=== PATIENT | female | born 1985 | race Caucasian/White ===

== ENCOUNTER → 2019-05-29 11:52 | Outpatient (CLI) | payer OTHER, SELFPAY ==
--- NOTE | 2019-05-29 11:59 | RAD_ITS ---
STUDY: HYSTEROSALPINGOGRAM. REASON FOR EXAM: Female, 33 years old. Infertility, 20.05 mg FLUOROSCOPY TIME (if supplied): ( 40 seconds ) minutes/seconds TECHNIQUE: A hysterosalpingogram was performed by the dyer assistant. Imaging was submitted. COMPARISON: None. FINDINGS: The uterus is unremarkable. Both fallopian tubes are patent with free spill. RAD/Salpingogram IMPRESSION: Unremarkable hysterosalpingogram. Electronically Signed: Franklyn Rojo, at 13:24 EST , Service support ,
== END ==
PROVIDERS: PCP Family Medicine; Referring Provider Obstetrics & Gynecology; Visit Provider Obstetrics & Gynecology
DX: N97.9 Female infertility, unspecified (principal)
CPT/HCPCS: 58340; 74740; Q9967

== ENCOUNTER → 2020-03-05 12:28 | Outpatient (CLI) | payer OTHER, SELFPAY ==
[2020-03-05 13:39] LABS: Prolactin 13.2 ng/mL; T4 Free Direct 1.13 ng/dL (0.76-1.46); Thyroid Stim Hormone (TSH) 1.01 uIU/mL (0.358-3.74)
[2020-03-05 14:06] LABS: HIV - WCH Non-Reactive (Nonreactive); Hepatitis B Surface Antigen Non-Reactive (Nonreactive); Hepatitis C Antibody Non-Reactive (Nonreactive); Rubella IgG Reactive (Nonreactive)
[2020-03-06 20:42] LABS: V-Zoster IgG (Immunity) > 4000 index (Immune >165)
[2020-03-07 01:21] LABS: Rapid Plasmin Reagin (RPR) NONREACTIVE (NONREACTIVE)
[2020-03-11 04:44] LABS: 17-Hydroxyprogesterone 132 ng/dL (.)
== END ==
PROVIDERS: PCP Family Medicine
DX: Z01.83 Encounter for blood typing (principal); E03.9 Hypothyroidism, unspecified; E22.1 Hyperprolactinemia; E28.1 Androgen excess; Z11.3 Encounter for screening for infections with a predominantly sexual mode of transmission; Z11.59 Encounter for screening for other viral diseases; Z11.8 Encounter for screening for other infectious and parasitic diseases
CPT/HCPCS: 36415; 82627; 83498; 84146; 84403; 84439; 84443; 86592; 86703; 86762; 86787; 86803; 86850; 86900; 86901; 87340; 82626

== ENCOUNTER 2021-01-29 17:20 | Outpatient (CLI) | payer OTHER, SELFPAY ==
[2021-01-29 17:34] VITALS: BP 120/67; PULSE 84
[2021-01-29 17:35] VITALS: BP 120/67; PULSE 84; TEMP 36.7; TEMP 36.8
[2021-01-29 17:36] VITALS: BMI 33.5
--- NOTE | 2021-01-29 21:20 | OB.TRI.NOTE ---
HPI - General HPI Narrative ERASMO SPARKS, is a 35 F @ 37 weeks who presents c/o decreased FM PFSH PFSH Home Medications magnesium [Mag-200] 200 mg PO DAILY 01/29/21 [History Last Taken Unknown] [id number] [] 1 tab PO DAILY 01/29/21 [History Last Taken 01/29/21 08:00 1] Allergy/AdvReac Type Severity Reaction Status Date / Time hydrocodone [From Vicodin] AdvReac Nausea Verified 01/29/21 17:48 NST FHR Rate Baby A Baseline: 145 Variability:: Moderate Accelerations:: 15 x 15 Decelerations:: None NST Reactive:: Yes FHR Category:: Category I Uterine Activity:: q2-4 min Assessment & Plan (1) Decreased movement: PLAN: @ 37 weeks, decreased FM 1) nst reactive- well being established 2) follow up in office as scheduled
== END 2021-01-29 18:30 | disposition home or self-care (01) ==
LOC: WPOUT 17:32 → WP 17:33
PROVIDERS: PCP Family Medicine; Referring Provider Obstetrics & Gynecology; Visit Provider Obstetrics & Gynecology
DX: O36.8130 Decreased fetal movements, third trimester, not applicable or unspecified (principal); Z3A.37 37 weeks gestation of pregnancy
CPT/HCPCS: 59025; 59050; 99218; G0378

== ENCOUNTER 2021-02-15 13:35 | Outpatient (CLI) | payer OTHER, SELFPAY ==
[2021-02-15 14:23] VITALS: BMI 33.6
[2021-02-15 14:29] VITALS: BP 115/74; PULSE 86; PULSE 89
[2021-02-15 14:40] LABS: ROM Internal Control Test YES-OK TO RESULT pt. (Internal QC)
[2021-02-15 14:41] LABS: ROM Patient Test Negative (Negative)
--- NOTE | 2021-02-15 14:51 | OB.TRI.NOTE ---
HPI - General HPI Narrative ERASMO SPARKS, is a 35 F at 39.3 weeks gestation who presents to with loss of fluid. Patient stated she had small amount of blood tinged mucus this morning after wiping. She continues to feel like she is leaking clear fluid. Positive movement. Denies any cramps or contractions. Maternal Data Information CASSIDY Calculator Estimated Delivery Date Method Current WG Current Estimate 02/19/21 Manual 39w 3d PFSH PFSH Home Medications magnesium [Mag-200] 200 mg PO DAILY 01/29/21 [History Last Taken Unknown] [id number] [] 1 tab PO DAILY 01/29/21 [History Last Taken 01/29/21 08:00 1] Allergy/AdvReac Type Severity Reaction Status Date / Time hydrocodone [From Vicodin] AdvReac Nausea Verified 01/29/21 17:48 ROS Eyes Eyes: Denies blurry vision Cardiovascular Cardiovascular: Reports none; Denies chest pain at rest, chest pain with activity or dizziness Respiratory/Chest Respiratory/Chest: Denies cough or dyspnea Gastrointestinal Gastrointestinal: Reports none and other; Denies diarrhea or vomiting Genitourinary Genitourinary: Denies dysuria Musculoskeletal Musculoskeletal: Reports none Integumentary Integumentary: Reports none; Denies rash Neurologic Neurologic: Denies dizziness, headache(s) or other visual disturbances Psychiatric Psychiatric: Reports none Physical Exam Const alert and no apparent distress General Appearance: cooperative Orientation / Consciousness: awake Exam Limitations: no limitations HEENT normocephalic Eyes General Eye: normal appearance of both eyes Neck full ROM Chest inspection of chest normal Resp normal respiratory effort and normal air movement Effort and Inspection: symmetric chest movement Auscultation: clear to auscultation bilaterally Cardio regular rate GI soft to palpation, non-tender and non-distended Inspection: and other Manual OB Exam: dilated 1, effaced 50 and station -3 Back/Spine normal ROM Extremity full ROM, normal capillary refill and no calf tenderness Skin no rashes or lesions noted Neuro oriented x3 and CN's II-XII intact bilaterally Psych mental status grossly normal NST FHR Rate Baby A Baseline: 135 Variability:: Moderate Accelerations:: 15 x 15 Decelerations:: None NST Reactive:: Yes FHR Category:: Category I Uterine Activity:: irritability Assessment & Plan (1) 39 weeks gestation of : (2) Leakage of amniotic fluid: PLAN: NST reactive- Cat.1 tracing ROM plus - negative CE /-3 Labor precautions and kick counts reviewed D/C home with follow up in office
== END 2021-02-15 14:57 | disposition home or self-care (01) ==
LOC: WPOUT 13:40 → WP 13:41
PROVIDERS: PCP Family Medicine; Referring Provider Advanced Practice Midwife; Visit Provider Advanced Practice Midwife
DX: O42.92 Full-term premature rupture of membranes, unspecified as to length of time between rupture and onset of labor (principal); Z3A.39 39 weeks gestation of pregnancy
CPT/HCPCS: 59025; 59050; 84112; 99218; G0378

== ENCOUNTER 2021-02-18 02:55 | Inpatient (IN) | payer OTHER, SELFPAY ==
[2021-02-18] VITALS (90 sets, daily range): BP systolic 64–139; BP diastolic 34–75; PULSE 65–128; TEMP 36.5–38.6; O2SAT 83–100; BMI 32.5
[2021-02-18] MEDS: proMETHazine 25 MG/ML Syringe 12.5 MG IM (02:00)
[2021-02-18] MEDS: morphine 10 MG/ML Syringe 5 MG IM (02:00)
[2021-02-18] MEDS: Lactated Ringers 1,000 ML 200 ML IV ×3 (03:15→13:49)
[2021-02-18 03:27] LABS: Absolute Neutrophil Count 11.7 X10^3/uL (2.0-7.7); Basophil# 0.04 X10^3/uL; Basophil% 0.3 % (0-1); Eosinophil# 0.02 X10^3/uL; Eosinophils% 0.1 % (0-5); Hematocrit 41.2 % (37-47); Hemoglobin 14.3 g/dL (12.0-15.0); Lymphocyte % 8.1 % (19-41); Mean Corp Hgb Conc 34.7 g/dL (32-36); Mean Corpuscular Hgb 29.3 pg (27.0-32.0); Mean Corpuscular Volume 84.4 fL (81-99); Mean Platelet Vol. 9.7 fl (6.2-12.0); Monocyte# 0.62 X10^3/uL; Monocyte% 4.6 % (0-10); NRBC Flagged by Analyzer 0 % (0-5); Neutrophil # 11.73 X10^3/uL (2.7-7.7); Neutrophil % 86.4 % (47-70); Platelet Count 214 K/mm3 (150-450); RBC Distribution Width CV 12.9 % (11.6-14.6); RBC Distribution Width SD 39.4 fl (35.1-43.9); Red Blood Count 4.88 M/mm3 (4.2-5.4); White Blood Count 13.6 K/mm3 (4.4-11.0)
[2021-02-18] MEDS: Lactated Ringers 500 ML 999 ML IV ×3 (04:35→06:54)
[2021-02-18] MEDS: fentaNYL-bupivacaine (epidural) 100 ML BAG EPIDURAL ×4 (05:28→16:18)
[2021-02-18] MEDS: 0.9% Saline Lock 10 ML Syringe IV (06:56)
[2021-02-18] MEDS: Ondansetron 4 MG/2 ML Vial IV ×2 (06:56→16:29)
--- NOTE | 2021-02-18 08:35 | PCM.HP.OB ---
HPI - General General Date of Admission: 02/18/21 HPI Narrative ERASMO SPARKS, is a 35 F who presents in labor. Maternal Data Information CASSIDY Calculator Estimated Delivery Date Method Current WG Current Estimate 02/19/21 Manual 39w 6d PFSH PFSH Medical History (Updated 02/18/21 @ 08:[address] Maxx Eastman MD) Anxiety Autoimmune disease Infertility Home Medications magnesium [Mag-200] 200 mg PO DAILY 01/29/21 [History Last Taken 02/17/21 10:00] [id number] [] 1 tab PO DAILY 01/29/21 [History Last Taken 02/17/21 10:00] acetaminophen [Tylenol Ex Str Arthritis Pain] 500 mg PO Q6H PRN 02/18/21 [History Last Taken 02/17/21 13:00 1000 mg] Allergy/AdvReac Type Severity Reaction Status Date / Time hydrocodone [From Vicodin] AdvReac Nausea Verified 02/18/21 03:28 Surgical History (Updated 02/18/21 @ 03:33 by Aviva Kimball) History of surgery Social History Smoking Status: Former smoker History Elective abortions Hx Para 0 Spontaneous abortions Hx # Term Pregnancies Ectopic pregnancies Hx # Pregnancies Multiple births # of living children NST FHR Rate Baby A Baseline: 150 Variability:: Moderate Accelerations:: 15 x 15 Decelerations:: Variable Uterine Activity:: Irregular - Q4-6 minutes at times Vital Signs Vital Signs Vital Signs: 02/18/21 01:07 02/18/21 01:08 02/18/21 03:53 Temperature 98.3 F 98.9 F Temperature Source Temporal Temporal Pulse Rate 98 101 H Blood Pressure 112/71 111/62 BP Systolic 112 111 BP Diastolic 71 62 Pulse Ox 97 97 02/18/21 04:10 02/18/21 04:16 02/18/21 05:11 Temperature 97.7 F L Temperature Source Temporal Pulse Rate 100 102 H Blood Pressure 124/75 H BP Systolic 124 BP Diastolic 75 Pulse Ox 93 97 99 02/18/21 05:16 02/18/21 05:17 02/18/21 05:21 Temperature Temperature Source Pulse Rate 95 103 H 99 Blood Pressure 118/70 BP Systolic 118 BP Diastolic 70 Pulse Ox 99 98 02/18/21 05:23 02/18/21 05:26 02/18/21 05:28 Temperature 98.1 F Temperature Source Temporal Pulse Rate 88 113 H 111 H Blood Pressure 126/74 H 99/57 L BP Systolic 126 99 BP Diastolic 74 57 Pulse Ox 99 02/18/21 05:31 02/18/21 05:32 02/18/21 05:36 Temperature Temperature Source Pulse Rate 110 H 108 H 92 Blood Pressure 83/46 L 102/60 BP Systolic 83 102 BP Diastolic 46 60 Pulse Ox 100 100 02/18/21 05:37 02/18/21 05:41 02/18/21 05:42 Temperature Temperature Source Pulse Rate 97 91 100 Blood Pressure 93/52 L 97/55 L BP Systolic 93 97 BP Diastolic 52 55 Pulse Ox 100 02/18/21 05:46 02/18/21 05:48 02/18/21 05:51 Temperature Temperature Source Pulse Rate 89 93 94 Blood Pressure 113/66 BP Systolic 113 BP Diastolic 66 Pulse Ox 100 100 02/18/21 05:53 02/18/21 05:56 02/18/21 05:58 Temperature Temperature Source Pulse Rate 88 81 83 Blood Pressure 96/50 L 107/53 L BP Systolic 96 107 BP Diastolic 50 53 Pulse Ox 99 02/18/21 06:01 02/18/21 06:04 02/18/21 06:06 Temperature Temperature Source Pulse Rate 86 83 77 Blood Pressure 110/58 L BP Systolic 110 BP Diastolic 58 Pulse Ox 99 98 02/18/21 06:08 02/18/21 06:11 02/18/21 06:16 Temperature Temperature Source Pulse Rate 82 85 85 Blood Pressure 109/56 L BP Systolic 109 BP Diastolic 56 Pulse Ox 98 98 02/18/21 06:21 02/18/21 06:26 02/18/21 06:31 Temperature Temperature Source Pulse Rate 72 83 84 Blood Pressure BP Systolic BP Diastolic Pulse Ox 97 96 97 02/18/21 06:36 02/18/21 06:41 02/18/21 06:46 Temperature 97.9 F Temperature Source Temporal Pulse Rate 77 86 Blood Pressure 97/50 L BP Systolic 97 BP Diastolic 50 Pulse Ox 98 99 02/18/21 06:47 02/18/21 06:53 02/18/21 06:58 Temperature Temperature Source Pulse Rate 90 92 68 Blood Pressure 97/55 L 80/42 L 80/43 L BP Systolic 97 80 80 BP Diastolic 55 42 43 Pulse Ox 02/18/21 06:59 02/18/21 07:02 02/18/21 07:04 Temperature Temperature Source Pulse Rate 71 65 80 Blood Pressure 85/48 L 77/39 L 85/49 L BP Systolic 85 77 85 BP Diastolic 48 39 49 Pulse Ox 97 98 02/18/21 07:06 02/18/21 07:09 02/18/21 07:11 Temperature Temperature Source Pulse Rate 72 112 H 122 H Blood Pressure 94/52 L 104/51 L BP Systolic 94 104 BP Diastolic 52 51 Pulse Ox 98 02/18/21 07:13 02/18/21 07:14 02/18/21 07:16 Temperature Temperature Source Pulse Rate 92 99 121 H Blood Pressure 91/54 L 124/69 H BP Systolic 91 124 BP Diastolic 54 69 Pulse Ox 99 02/18/21 07:20 02/18/21 07:25 02/18/21 07:26 Temperature Temperature Source Pulse Rate 128 H 78 Blood Pressure 109/58 L 139/67 H BP Systolic 109 139 BP Diastolic 58 67 Pulse Ox 99 99 02/18/21 07:30 02/18/21 07:31 02/18/21 07:35 Temperature 98.0 F Temperature Source Temporal Pulse Rate 97 87 82 Blood Pressure 111/59 L 111/59 L BP Systolic 111 111 BP Diastolic 59 59 Pulse Ox 100 99 98 02/18/21 07:40 02/18/21 07:45 02/18/21 08:01 Temperature Temperature Source Pulse Rate 96 106 H 115 H Blood Pressure 104/55 L BP Systolic 104 BP Diastolic 55 Pulse Ox 98 100 Weight Weight: 178 lb Body Mass Index (BMI) 32.5 Physical Exam Const alert and oriented x3 GI soft to palpation and non-tender GI Narrative: Cvx - 6/80/-2 Inspection: gravid Labs Labs Labs: Blood Type AB POSITIVE Antibody Screen NEGATIVE Hct 41.2 % (37-47) Hgb 14.3 g/dL (12.0-15.0) VZV IgG Antibody > 4000 index (Immune >165) Rubella IgG Antibody Reactive (Nonreactive) Hep Bs Antigen Non-Reactive (Nonreactive) Neisseria gonorrhoeae DNA (ALEXANDRO) Negative (Negative) HIV 1&2 Antibody Non-Reactive (Nonreactive) Miscellaneous Test See [facility] H&P Assessment & Plan (1) 39 weeks gestation of : COMMENT: @ 39&6 PLAN: Admit to L&D Augment with pitocin & s/p AROM clear fluid GBS negative EFW less than 4500g, patient with adequate pelvis Pain - epidural COVID negative Routine care
[2021-02-18] MEDS: Oxytocin 30 units/NS 500 ml 30 UNITS/500 ML IV.SOLN IV (09:25)
[2021-02-18] MEDS: Acetaminophen 500 MG Tablet PO (12:54)
[2021-02-18] MEDS: Oxytocin 30 units/NS 500 ml 30 UNITS/500 ML IV.SOLN 334 UNITS IV (18:37)
--- NOTE | 2021-02-18 19:03 | EX.PCM.OBRPT ---
Maternal Data Information CASSIDY Calculator Estimated Delivery Date Method Current WG Current Estimate 02/19/21 Manual 39w 6d Vaginal Delivery Maternal Presentation Maternal Presentation: Active Labor Operative Information Date of Procedure: 02/18/21 Pre-Operative Diagnosis: (1) Labor Post-Operative Diagnosis: (1) Labor (2) Maternal fever Surgery / Procedure Performed: Spontaneous Vaginal Delivery Type of Anesthesia: Epidural Drain: Morley to straight drain (Removed just prior to delivery) Estimated Blood Loss: 400ml Findings Description of Procedure: Patient prepped & draped when C/C/+2. Patient was having variables but EFM was overall reassuring. She pushed well to deliver the head. Double nuchal cord noted and was clamped & cut. head then gently guided to allow delivery of anterior and posterior shoulders. No excess traction placed on head. Body delivered and 3VC clamped & cut in delayed fashion. Placenta delivered with gentle traction and good uterine tone obtained. Maternal fever noted after delivery. Presentation: TAI Amniotic Membrane Rupture Type: Artificial Amniotic Fluid Description: Clear Placental Delivery Description: Expressed Placenta Disposition: [facility] Specimen(s) Removed: Placenta Cord Vessel Description: 3 Vessels Cord Entanglement: Around neck x 2, tight Nuchal Cord Compression: With compression Infant A Gender: Female (September) (1 minute): 8 (5 minute): 9 Delayed Cord Clamping: No Post Vaginal Delivery Medications Given After Delivery: IV Pitocin Episiotomy Description: None Laceration: 1st degree (vaginal - repaired with 3-0 vicryl) Complication Complications: None
[2021-02-19 00:20] VITALS: BP 103/62; PULSE 102; RESP 18; TEMP 36.9; O2SAT 97
--- NOTE | 2021-02-19 02:09 | NURSING ---
This RN assuming care of patient and at this time. Received report from Shaquille Barreto RN.
[2021-02-19 03:05] VITALS: BP 103/46; PULSE 92; RESP 16; TEMP 36.2
[2021-02-19] MEDS: 0.9% Saline Lock 10 ML Syringe IV ×3 (05:46→15:57)
[2021-02-19 06:12] LABS: Hematocrit 31.4 % (37-47); Hemoglobin 10.9 g/dL (12.0-15.0); Mean Corp Hgb Conc 34.7 g/dL (32-36); Mean Corpuscular Hgb 29.8 pg (27.0-32.0); Mean Corpuscular Volume 85.8 fL (81-99); Mean Platelet Vol. 9.9 fl (6.2-12.0); Platelet Count 160 K/mm3 (150-450); RBC Distribution Width CV 12.9 % (11.6-14.6); RBC Distribution Width SD 40.3 fl (35.1-43.9); Red Blood Count 3.66 M/mm3 (4.2-5.4); White Blood Count 18.8 K/mm3 (4.4-11.0)
[2021-02-19 07:53] VITALS: BP 105/67; PULSE 88; RESP 16; TEMP 36.4; O2SAT 96
--- NOTE | 2021-02-19 08:25 | PCM.PN.OB ---
Subjective Subjective Patient seen at bedside. Feeling good with minimal pain. Ambulating and voiding without difficulty. with support. Afebrile. Moderate lochia. Anticipate discharge home tomorrow. Objective Data Objective Data Isolated temperature immediately after delivery- 101.4 F Vital Signs: Vital Signs Temp Pulse Resp BP Pulse Ox 97.5 F L 88 16 105/67 96 02/19/21 07:53 02/19/21 07:53 02/19/21 07:53 02/19/21 07:53 02/19/21 07:53 Oxygen Delivery Method Room Air Weight: 178 lb Body Mass Index (BMI) 32.5 Intake & Output: Intake and Output for Last 24 Hours 02/17/21 02/18/21 02/19/21 23:59 23:59 23:59 Intake Total 5182.86 / 5182.86 100 / 100 Output Total 2200 / 2200 375 / 375 Balance 2982.86 / 2982.86 -275 / -275 Lab / Micro Data Result Diagrams: 02/19/21 05:50 Labs: Laboratory Results - last 24 hr 02/19/21 05:50: WBC 18.8 H, RBC 3.66 L, Hgb 10.9 L, Hct 31.4 L, MCV 85.8, MCH 29.8, MCHC 34.7, RDW Std Deviation 40.3, RDW Coeff of Jet 12.9, Plt Count 160, MPV 9.9 Micro: Microbiology 02/18/21 03:15 Nasal Secretion SARS-CoV-2 Antigen (Rapid) - Final ROS Eyes Eyes: Denies blurry vision, change in vision or spots in vision ENT HEENT: Denies dizziness or headache(s) Cardiovascular Cardiovascular: Denies abdominal pain, chest pain or dyspnea Respiratory/Chest Respiratory/Chest: Denies cough, dyspnea, shortness of breath at rest or shortness of breath with exertion Gastrointestinal Gastrointestinal: Denies abdominal pain, diarrhea or vomiting Genitourinary Genitourinary: Denies change in urinary stream, difficulty urinating or dysuria Musculoskeletal Musculoskeletal: Reports none Integumentary Integumentary: Denies rash Neurologic Neurologic: Denies dizziness, headache(s), memory loss or weakness Physical Exam Const alert and no apparent distress General Appearance: cooperative and comfortable Exam Limitations: no limitations HEENT normocephalic Eyes General Eye: normal appearance of both eyes Neck full ROM General: normal visual inspection Chest Chest: symmetrical chest wall rise Resp normal respiratory effort and normal air movement Effort and Inspection: symmetric chest movement Auscultation: clear to auscultation bilaterally Cardio regular rate and regular rhythm GI normal to inspection, nondistended, normoactive bowel sounds Back/Spine normal ROM Extremity full ROM and no calf tenderness General Extremity: normal exam except as noted Skin no rashes or lesions noted Neuro CN's II-XII intact bilaterally Psych mental status grossly normal Assessment & Plan (1) (spontaneous vaginal delivery): (2) Laceration, obstetrical, first degree: (3) Mother currently breast-feeding: PLAN: PPD #1 Pain control Routine care Continue to monitor temperature- Afebrile Anticipate discharge home tomorrow
[2021-02-19] MEDS: Ibuprofen 600 MG Tablet PO ×2 (08:34→15:55)
[2021-02-19 12:17] VITALS: BP 106/61; PULSE 96; RESP 16; TEMP 36.5
[2021-02-19 16:35] VITALS: BP 112/64; PULSE 87; RESP 16; TEMP 36.7
[2021-02-19 20:40] VITALS: BP 112/73; PULSE 89; RESP 16; TEMP 36.5; O2SAT 96
[2021-02-19] MEDS: Senna/Docusate Sodium 1 Tablet PO (21:47)
[2021-02-20] MEDS: Ibuprofen 600 MG Tablet PO (00:31)
[2021-02-20 02:00] VITALS: BP 117/76; PULSE 71; RESP 16; TEMP 36.6; O2SAT 97
[2021-02-20 06:21] LABS: Absolute Lymphocyte Count 1.98 X10^3/uL (0.83-4.51); Absolute Neutrophil Count 9.1 X10^3/uL (2.0-7.7); Basophil# 0.05 X10^3/uL; Basophil% 0.4 % (0-1); Eosinophil# 0.15 X10^3/uL; Eosinophils% 1.2 % (0-5); Hematocrit 32.4 % (37-47); Lymphocyte # 1.98 X10^3/ul (0.83-4.51); Lymphocyte % 16.4 % (19-41); Mean Corpuscular Hgb 29.2 pg (27.0-32.0); Mean Corpuscular Volume 85.9 fL (81-99); Mean Platelet Vol. 9.7 fl (6.2-12.0); Monocyte# 0.75 X10^3/uL; Monocyte% 6.2 % (0-10); NRBC Flagged by Analyzer 0 % (0-5); Neutrophil # 9.07 X10^3/uL (2.7-7.7); Neutrophil % 75.1 % (47-70); Platelet Count 167 K/mm3 (150-450); RBC Distribution Width CV 13.2 % (11.6-14.6); RBC Distribution Width SD 40.7 fl (35.1-43.9); Red Blood Count 3.77 M/mm3 (4.2-5.4); White Blood Count 12.1 K/mm3 (4.4-11.0)
[2021-02-20 07:50] VITALS: BP 117/80; PULSE 85; RESP 16; TEMP 36.6
--- NOTE | 2021-02-20 10:26 | PCM.PN.OB ---
Subjective Subjective Patient is doing well. Pain controlled. She has no complaints and desires discharge today. Denies chest pain, shortness of breath, leg pain. Lochia normal. She is breast-feeding. Ambulating voiding without difficulty. Tolerating regular diet without nausea or vomiting. Objective Data Objective Data Vital Signs: Vital Signs Temp Pulse Resp BP Pulse Ox 97.9 F 85 16 117/80 97 02/20/21 07:50 02/20/21 07:50 02/20/21 07:50 02/20/21 07:50 02/20/21 02:00 Oxygen Delivery Method Room Air Weight: 178 lb Body Mass Index (BMI) 32.5 Intake & Output: Intake and Output for Last 24 Hours 02/18/21 02/19/21 02/20/21 23:59 23:59 23:59 Intake Total 5182.86 / 5182.86 300 / 300 Output Total 2200 / 2200 375 / 375 Balance 2982.86 / 2982.86 -75 / -75 Lab / Micro Data Result Diagrams: 02/20/21 06:15 Labs: Laboratory Results - last 24 hr 02/20/21 06:15: WBC 12.1 H, RBC 3.77 L, Hgb 11.0 L, Hct 32.4 L, MCV 85.9, MCH 29.2, MCHC 34.0, RDW Std Deviation 40.7, RDW Coeff of Jet 13.2, Plt Count 167, MPV 9.7, Immature Gran % (Auto) 0.700, Neut % (Auto) 75.1 H, Lymph % (Auto) 16.4 L, [place] % (Auto) 6.2, Eos % (Auto) 1.2, Baso % (Auto) 0.4, Absolute Neuts (auto) 9.1 H, Absolute Lymphs (auto) 1.98, Nucleated RBC % 0 Micro: Microbiology 02/18/21 03:15 Nasal Secretion SARS-CoV-2 Antigen (Rapid) - Final Physical Exam Const alert and no apparent distress General Appearance: comfortable HEENT normocephalic Resp normal respiratory effort GI non-distended Assessment & Plan (1) Mother currently breast-feeding: PLAN: - PPD#2 s/p - Doing well and desires discharge - and has follow up with - Dispo: Discharge today and instructions reviewed (2) Laceration, obstetrical, first degree: (3) (spontaneous vaginal delivery):
--- NOTE | 2021-02-20 10:27 | DCINST_ITS ---
Discharge Instructions Diet Discharge Diet: No restrictions Activity Discharge Activity: Return to Normal Activity May resume sexual activity in: 6 weeks Ice area for (Minutes): 15 Weight Bearing Status: Weight bearing as tolerated Dressing / Incision Call your doctor if you observe: Fever of 101 or Higher, Coldness, Increased Pain, Numbness or Tingling, Inability to urinate, Inability to have a bowel movement, Using more than 1 pad per hour, Shortness of breath, Dizziness, Fainting spells, Swelling in the ankles, Chest pain, Increased palpitations ( irregular heartbeat) and Uncontrolled pain Cleanse incision/area with: Soap & Water Follow Up Care When: 1-2 weeks if you desire (can be virtual). 6 weeks for in person visit. Test Results: Test results from this visit will be discussed in further detail at your follow-up appointment, if applicable. Discharge Plan Admission Admit Date/Time: 02/18/21 02:55 Primary Reason for Your Visit: delivery Attending Provider: Ellie Pitt Primary Care Provider: Eusebia Rdz Discharge Orders/Prescriptions Prescriptions: New ibuprofen 800 mg tablet 800 mg PO Q8H PRN (Reason: pain) Qty: 30 RF: 0 docusate sodium [Colace] 100 mg capsule 100 mg PO BID PRN (Reason: constipation) Qty: 30 RF: 0 Continued [id number] 1 mg Tablet 1 tab PO DAILY RF: 0 Discontinued magnesium [Mag-200] 200 mg Tablet 200 mg PO DAILY RF: 0 acetaminophen [Tylenol Ex Str Arthritis Pain] 500 mg Tablet 500 mg PO Q6H PRN (Reason: Cramps) RF: 0 Referrals / Follow Up: Eusebia Rdz MD [Primary Care Provider] - Disposition Disposition (needs filled in before D/C Order can be placed): Home, Self Care
== END 2021-02-20 11:15 | disposition home or self-care (01) | DRG 806 ==
LOC: WPOUT 03:02 → WP 03:02
PROVIDERS: Admitting Provider Obstetrics & Gynecology; PCP Family Medicine; Visit Provider Advanced Practice Midwife
DX: O69.1XX0 Labor and delivery complicated by cord around neck, with compression, not applicable or unspecified (principal); O86.4 Pyrexia of unknown origin following delivery; Z37.0 Single live birth; O76 Abnormality in fetal heart rate and rhythm complicating labor and delivery; Z3A.39 39 weeks gestation of pregnancy; Z87.891 Personal history of nicotine dependence; O70.0 First degree perineal laceration during delivery
CPT/HCPCS: 59025; 59050; 85025; 85027; 86850; 86900; 86901; 87426; 99218; J7120; A4216; G0378; J2405

== ENCOUNTER → 2023-08-31 | Outpatient (CLI) | payer OTHER, SELFPAY ==
[2023-09-03 07:08] LABS: Chlamydia By Nucleic Acid AMP Negative (Negative); Gonococcus By Nucleic Acid AMP Negative (Negative)
[2023-09-06 16:09] LABS: HPV APTIMA, High Risk Negative (Negative)
== END | disposition home or self-care (01) ==
LOC: LABSPEC 12:51
PROVIDERS: PCP Family Medicine; Referring Provider Obstetrics & Gynecology; Visit Provider Obstetrics & Gynecology
DX: Z34.90 Encounter for supervision of normal pregnancy, unspecified, unspecified trimester (principal)
CPT/HCPCS: 87086; 87491; 87591; 87624; 88175; G0145

== ENCOUNTER → 2023-09-15 | Outpatient (CLI) | payer OTHER, SELFPAY ==
[2023-09-15 16:33] LABS: Absolute Neutrophil Count 5.4 X10^3/uL (2.0-7.7); Basophil# 0.04 X10^3/uL; Basophil% 0.5 % (0-1); Eosinophil# 0.05 X10^3/uL; Eosinophils% 0.7 % (0-5); Hematocrit 37.8 % (37-47); Hemoglobin 12.7 g/dL (12.0-15.0); Lymphocyte % 21.2 % (19-41); Mean Corp Hgb Conc 33.6 g/dL (32-36); Mean Corpuscular Hgb 28.3 pg (27.0-32.0); Mean Corpuscular Volume 84.4 fL (81-99); Mean Platelet Vol. 9.8 fl (6.2-12.0); Monocyte# 0.46 X10^3/uL; Monocyte% 6.1 % (0-10); NRBC Flagged by Analyzer 0 % (0-5); Neutrophil # 5.37 X10^3/uL (2.7-7.7); Neutrophil % 71.1 % (47-70); Platelet Count 241 K/mm3 (150-450); RBC Distribution Width CV 12.7 % (11.6-14.6); RBC Distribution Width SD 38.7 fl (35.1-43.9); Red Blood Count 4.48 M/mm3 (4.2-5.4); White Blood Count 7.6 K/mm3 (4.4-11.0)
[2023-09-15 17:40] LABS: HIV - WCH Non-Reactive (Nonreactive); Hepatitis B Surface Antigen Non-Reactive (Nonreactive); Hepatitis C Antibody Non-Reactive (Nonreactive); Rubella IgG Reactive (Nonreactive); Syphilis Antibodies Non-reactive
== END | disposition home or self-care (01) ==
LOC: LAB 15:54
PROVIDERS: PCP Family Medicine; Referring Provider Obstetrics & Gynecology; Visit Provider Obstetrics & Gynecology
DX: O09.91 Supervision of high risk pregnancy, unspecified, first trimester (principal); Z3A.00 Weeks of gestation of pregnancy not specified
CPT/HCPCS: 36415; 85025; 86703; 86762; 86780; 86803; 86850; 86900; 86901; 87340

== ENCOUNTER → 2023-10-27 | Outpatient (CLI) | payer OTHER, SELFPAY | END | disposition home or self-care (01) | PROVIDERS: PCP Family Medicine; Referring Provider Nurse Practitioner Women's Health; Visit Provider Nurse Practitioner Women's Health | DX: Z34.00 Encounter for supervision of normal first pregnancy, unspecified trimester (principal) | CPT/HCPCS: 36415; 82105; 82677; 84702 ==

== ENCOUNTER 2024-01-10 10:00 | Outpatient (CLI) | payer OTHER, SELFPAY ==
[2024-01-10 10:20] VITALS: BP 117/65; PULSE 82; RESP 16; TEMP 36.6
[2024-01-10 10:24] VITALS: BMI 32.6
[2024-01-10 11:07] LABS: ROM Internal Control Test YES-OK TO RESULT pt. (Internal QC); ROM Patient Test Negative (Negative); Record Kit Lot#, ROM+ K1866
--- NOTE | 2024-01-10 11:37 | US_ITS ---
STUDY: OBSTETRICAL ULTRASOUND - BIOPHYSICAL PROFILE REASON FOR EXAM: Female, 38 years old AMA -- please get OUSMANE as well LMP: Unknown. PRIOR ULTRASOUND: None. TECHNIQUE: Transabdominal TECHNICAL QUALITY: Adequate. FINDINGS: There is a single intrauterine fetus. The fetus is in a cephalic presentation. There is demonstrated cardiac activity with a heart rate of 135 bpm. There is a normal amniotic fluid volume. The largest amniotic fluid pocket measures 3.7 cm. The amniotic fluid index (OUSMANE) is 10.5 cm. The placenta is posterior in location and is not low lying. There are Grade 0 placental changes. Age by LMP: 27 weeks, 1 days. CASSIDY by LMP: April 09, 2024. BIOPHYSICAL PROFILE: Breathing Movements (FBM): 2 Gross Body Movements (GBM): 2 Tone (FT): 2 Amniotic Fluid Volume (AFV): 2 TOTAL SCORE: 8 / 8 US/Biophysical Prof W/O Non Stres IMPRESSION: Normal biophysical profile of 12/01. Electronically Signed: Franklyn Rojo MD at 15:15 EDT ,
[2024-01-10 11:47] LABS: Bacteria 0 SEEN /hpf (None Seen); Mucous, Urine 0 SEEN /hpf (<or=2+); Red Blood Cells-Urine 0 SEEN /hpf (0-5)
[2024-01-10 11:50] LABS: Color, Urine Straw (Yellow); Glucose, Dipstick Normal (Normal); Ketone-Dipstick Negative (Negative); Leukocyte Esterase-Dipstick 100 /ul (Negative); Nitrite-Dipstick Negative (Negative); Occult Blood-Urine Negative /ul (Negative); Protein-Dipstick Negative (Negative); Urine Bilirubin Dipstick Negative (Negative); Urine Clarity Clear (Clear); Urine Urobilinogen Normal (Normal)
[2024-01-10 12:03] LABS: Squamous Epithelial Cells - UA 0-5 SEEN /hpf (5-10); White Blood Cells 0-5 SEEN /hpf (0-5)
--- NOTE | 2024-01-10 13:33 | OB.TRI.PN ---
Progress Notes Date of Service: 01/10/24 Progress Note: Patient presents for triage evaluation secondary to vaginal discharge FHT: 135 Moderate variability reactive no decelerations category I tracing [place]: no Contractions noted on monitor Assessment and plan: OUSMANE 10, negative Rom +, Reactive NST, reassuring maternal and status patient discharged to home to follow-up in office at next appt. See problem list details for additional plan information. Laboratory Studies: Laboratory Tests 01/10/24 01/10/24 Range/Units 10:35 10:15 Urine Color Straw (Yellow) Urine Clarity Clear (Clear) Urine pH 7.0 (5.0 - 8.0) Ur Specific [place] 1.010 (1.002-1.030) Urine Protein Negative (Negative) mg/dl Urine Glucose (UA) Normal (Normal) mg/dl Urine Ketones Negative (Negative) mg/dl Urine Occult Blood Negative (Negative) /ul Urine Nitrite Negative (Negative) Urine Bilirubin Negative (Negative) mg/dL Urine Urobilinogen Normal (Normal) mg/dl Ur Leukocyte Esterase 100 H (Negative) /ul Urine RBC 0 SEEN (0-5) /hpf Urine WBC 0-5 SEEN (0-5) /hpf Ur Squamous Epith Cells 0-5 SEEN (5-10) /hpf Urine Bacteria 0 SEEN (None Seen) /hpf Urine Mucus 0 SEEN (<or=2+) /hpf Vag Amniotic Fld Detect Negative (Negative) Charges/Coding Multi Select Codes Urinary/Genital Urinary/Genital CPT Codes: 81501-84 non-stress test Interp Assessment & Plan (1) Anxiety: COMMENT: started celexa 12/15 (2) AMA (advanced maternal age) multigravida 35+: QUALIFIERS: Trimester: second trimester Qualified Code(s): O09.522 - Supervision of elderly multigravida, second trimester COMMENT: genetic counseling provided and NIPT done. growth US every 4 weeks, deliver by 39-40. (3) Supervision of high risk in first trimester: COMMENT: PRR , CASSIDY 04/09, girl PC: Naheed, : Lalito (4) H/O infertility: COMMENT: Seen by [facility] for last - Did IUI & Clomid, Vanishing Twin @ 7weeks *Not for this (5) : QUALIFIERS: Weeks of gestation: 24 weeks Qualified Code(s): Z3A.24 - 24 weeks gestation of COMMENT: nl anatomy, AFP Negative, Discussed genetic/carrier testing- low risk NIPT. Carrier testing done w/[facility] for previous - Mom carrier for color blindness and metabolic disorder
--- NOTE | 2024-01-10 13:40 | NURSING ---
[facility] notified of BPP 12/01 and OUSMANE 10.5. ok to discharge.
== END 2024-01-10 13:30 | disposition home or self-care (01) ==
LOC: WPOUT 10:09 → WP 10:11
PROVIDERS: PCP Family Medicine; Referring Provider Advanced Practice Midwife; Visit Provider Advanced Practice Midwife
DX: O99.891 Other specified diseases and conditions complicating pregnancy (principal); N89.8 Other specified noninflammatory disorders of vagina; Z3A.24 24 weeks gestation of pregnancy; O99.342 Other mental disorders complicating pregnancy, second trimester; F41.9 Anxiety disorder, unspecified; O09.512 Supervision of elderly primigravida, second trimester
CPT/HCPCS: 59025; 59050; 76819; 81001; 84112; 99221; G0378

== ENCOUNTER → 2024-01-21 | Outpatient (CLI) | payer OTHER, SELFPAY ==
[2024-01-21 14:58] LABS: Absolute Lymphocyte Count 0.99 X10^3/uL (0.83-4.51); Absolute Neutrophil Count 6.8 X10^3/uL (2.0-7.7); Basophil# 0.02 X10^3/uL; Basophil% 0.2 % (0-1); Eosinophil# 0.06 X10^3/uL; Eosinophils% 0.7 % (0-5); Hematocrit 35.5 % (37-47); Hemoglobin 12.1 g/dL (12.0-15.0); Lymphocyte # 0.99 X10^3/ul (0.83-4.51); Lymphocyte % 11.9 % (19-41); Mean Corp Hgb Conc 34.1 g/dL (32-36); Mean Corpuscular Hgb 29.2 pg (27.0-32.0); Mean Corpuscular Volume 85.7 fL (81-99); Mean Platelet Vol. 9.7 fl (6.2-12.0); Monocyte# 0.46 X10^3/uL; Monocyte% 5.5 % (0-10); NRBC Flagged by Analyzer 0 % (0-5); Neutrophil # 6.75 X10^3/uL (2.7-7.7); Platelet Count 236 K/mm3 (150-450); RBC Distribution Width CV 13.2 % (11.6-14.6); RBC Distribution Width SD 41.1 fl (35.1-43.9); Red Blood Count 4.14 M/mm3 (4.2-5.4); White Blood Count 8.3 K/mm3 (4.4-11.0)
[2024-01-21 15:55] LABS: Glucose Challenge Gest 1H 50g 113 mg/dL (70-140)
[2024-01-21 16:14] LABS: HIV - WCH Non-Reactive (Nonreactive); Syphilis Antibodies Non-reactive
== END | disposition home or self-care (01) ==
LOC: LAB 13:32
PROVIDERS: PCP Physician Assistant; Referring Provider Advanced Practice Midwife; Visit Provider Advanced Practice Midwife
DX: O09.90 Supervision of high risk pregnancy, unspecified, unspecified trimester (principal); Z13.1 Encounter for screening for diabetes mellitus; Z3A.24 24 weeks gestation of pregnancy
CPT/HCPCS: 36415; 82950; 85025; 86703; 86780

== ENCOUNTER → 2024-02-18 | Outpatient (CLI) | payer OTHER, SELFPAY ==
--- NOTE | 2024-02-18 15:45 | US_ITS ---
STUDY: SECOND AND THIRD TRIMESTER OBSTETRICAL ULTRASOUND - LIMITED REASON FOR EXAM: Female, 38 years old 32 week US LMP: July 04, 2023. PRIOR ULTRASOUND: Comparison is made with prior study dated January 10, 2024. TECHNIQUE: Transabdominal TECHNICAL QUALITY: Adequate. FINDINGS: There is a single intrauterine fetus. The fetus is in a cephalic presentation. There is demonstrated cardiac activity with a heart rate of 135 bpm. There is a normal amniotic fluid volume. The largest amniotic fluid pocket measures 5.9 cm. The amniotic fluid index (OUSMANE) is 13.7 cm. The placenta is posterior in location and is not low lying. There are Grade 2 placental changes. BIOMETRY: BPD: 8.2 cm: 33 weeks, 0 days: 52% HC: 30 cm: 33 weeks, 2 days: 26.7% AC: 29.1 cm: 33 weeks, 1 days: 62.3% FL: 6.4 cm: 33 weeks, 0 days: 45.6% Age by LMP: 32 weeks, 5 days. CASSIDY by LMP: April 09, 2024. age by current US: 32 weeks, 6 days. CASSIDY by current US: April 08, 2024. Estimated weight: 2134 grams, +/- 320 grams, 55 percentile. US/OB Limited With Biometrics IMPRESSION: Single live intrauterine gestation with a mean gestational age of 32 weeks and 6 days. Electronically Signed: Franklyn Rojo MD at 14:59 EDT ,
--- OUTSIDE RECORDS SUMMARY | 2024-02-18 17:24 | XMS RPT_ITS | CCD ---
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 [facility],[address] [place] [address] Rbc 0-5 Normal 0-3/hpf [facility] Comment on above: Performed By: #### 2 82214 #### [facility],[address] [place] [address] Sp Phillips 1.020 Normal NORMAL: 1.010-1.030 [facility] Comment on above: Performed By: #### 2 96207 #### [facility],[address] [place] [address] Specimen Type Clean catch Normal [facility] Comment on above: Performed By: #### 2 [id number] #### [facility],[address] [place] [address] Urinalysis dipstick W Reflex Microscopic panel (U) SEE BELOW Normal [facility] Comment on above: Result Comment: MICR OSCOPIC Performed By: #### 2 [id number] #### [facility],[address] [place] [address] Urobilinog NORM Normal NORMAL: NORMAL [facility] Comment on above: Performed By: #### 2 [id number] #### [place] [address] Wbc 1-5 Normal 0-5/hpf [facility] Comment on above: Performed By: #### 2 74866 #### [facility],[address] [place] [address] Yeast NONE Normal [facility] Comment on above: Performed By: #### 2 78137 #### [facility],[address] [place] [address] EMERGENCY REPORTon 2 EMERGENCY REPORT [facility] EMERGENCY ROOM REPORT NAME ACCOUNT SEX AGE ADMIT DISCHARGE PT MED. RECORD# NUMBER DATE DATE HEMANT SPARKS [id number] Davis 36 03/21/22 03/21/22 3 ERASMO Michaels [id number] ROOM: ER DATE OF : 1985 DICTATING PHYSICIAN: Cj Godoy CHIEF COMPLAINT: Left breast pain. HISTORY OF PRESENT ILLNESS: The patient is a 36-year-old female who presents to the ED with concerns of left breast mastitis. The patient noticed swelling and pain to her left breast that began around 2:30 p.m. The patient reports she has had flu like symptoms for the past week and has been taking Mucinex and OTC medications, and she thinks they have clogged her ducts and backed her milk up. The patient reports everyone at home has been sick. Her daughter previously had pink eye, and then she developed cold symptoms. She endorses fevers, max temperature of 100.4, migraines, chills, and generalized body aches. The patient has tried hot showers and expressing milk for her left breast pain. The patient is her 1-year-old daughter. She denies any redness to the area. The patient saw her PCP a couple of days ago and was told she had a viral illness. The patient had a COVID-19 test that was negative at home. She is declining further viral swabs. She is mainly concerned about her left breast swelling and tenderness. PAST MEDICAL HISTORY: Denies. PAST SURGICAL HISTORY: [place] teeth extraction. ALLERGIES: Denies. SOCIAL HISTORY: Former tobacco user. Denies EtOH. Denies recreational drugs. REVIEW OF SYSTEMS: Ten systems reviewed and all systems negative except as stated in the HPI. PHYSICAL EXAMINATION: VITAL SIGNS: Temperature 98, 97% on room air, respiratory rate 16, blood pressure 110/61, and heart rate 80. GENERAL APPEARANCE: The patient is lying in bed, alert, and in no apparent distress. HEENT: Head is normocephalic and atraumatic. Pupils are equal, round, and reactive to light. Extraocular muscles are intact. Nares are patent. No epistaxis or rhinorrhea. Pharynx is moist and pink with no exudates. No uvula deviation. NECK: Neck is supple. Trachea is midline. There is no JVD. No lymphadenopathy. RESPIRATORY: Respirations are even and unlabored. Lungs are clear bilaterally. CARDIAC: There are no heart murmurs or gallops. Regular rate and rhythm. S1, S2 present. No pedal edema. Chest wall is Page 1 of 2 BRIDGER ERASMO A Emergency Room Report ERASMO SPARKS : 1985 symmetric. No crepitus. ABDOMEN: Abdomen is soft, nontender, and nondistended. Normoactive bowel sounds in all 4 quadrants. MUSCULOSKELETAL/EXTRE MITIES: The patient moves all extremities spontaneously. Full range of motion noted. Back is atraumatic. No obvious deformity or injury to extremities. SKIN: Skin is warm and dry. No obvious rashes. BREAST: Left breast examined with AZAM Styles as my developmental therapist. She has tenderness to palpation to the left medial aspect of the left breast. There is no erythema, drainage. No warmth or crepitus noted. Capillary refill is less than 2 seconds. Skin is warm and dry and well-perfused. NEUROLOGIC: The patient is alert and oriented x4. Cranial nerves II-XII are grossly intact. She ambulates with a steady gait. DIAGNOSTIC DATA: None. EMERGENCY DEPARTMENT COURSE AND TREATMENT: The patient arrived to the ED hemodynamically stable and in no acute distress. She does have some tenderness to palpation to the medial aspect of the left breast with no erythema. No palpable lymphadenopathy. The patient is currently and took owlr-myj-[id number] medications that may have clogged her ducts, suspicion for early mastitis. The patient's symptoms initially trigger as a result of treating her flu like symptoms. I discussed obtaining viral swabs with the patient, and she declined this. DIAGNOSES: 1. Left breast mastitis. 2. Flu like symptoms. PLAN/DISPOSITION: We will start her on doxycycline and encouraged supportive care. The patient was instructed to continue to express her milk and wear a supportive bra. She is to followup with PCP in 2 to 3 days. She is discharged home in stable condition with instructions to followup with MEDICAL RECORD CONSULTANT/family doctor. She is to return to the ED for new or worsening symptoms. The patient verbalized understanding, and is agreeable to the plan. Dictated By: Cj Godoy MD 03/26/22 05:28 JOB #: [id number] Transcribed By: am 03/27/22 07:18 Electronically signed by: Dr. Corona Ihbrittanyonunekwu 04/22/22 07:57 Page 2 of 2 ERASMO SPARKS A Emergency Room Report Normal [facility] Laboratory - Chemistry and C hemistry - challengeon 12-15-2021 Bilirubin Ql (U) Negative Normal [facility]. Ketones Ql (U) Negative Normal [employer].; [facility]. pH (U) 5.5 [pH] Normal [facility]. Specific gravity (U) [Rel density] 1.025 Normal [employer]; [facility]. Urobilinogen Qn (U) 0.2 mg/dL Normal [employer]. Laboratory - Hematology and Cell countson 12-15-2021 Hemoglobin Ql (U) small Abnormal [facility]. Laboratory - Specimen inform ationon 12-15-2021 Appearance (U) clear Normal [employer]. Color (U) yellow Normal [facility]. Laboratory - Urinalysison Glucose Test strip (U) [Mass/Vol] Negative Normal [facility]. Leukocyte esterase Test strip Ql (U) Negative Normal [facility]. Nitrite Ql (U) Negative Normal [employer].; [facility]. Protein Ql (U) Negative Normal [employer]. CNOVon 06-19-2021 CNOV Office Visit (OBGYWM ) ERASMO SPARKS ([id number]) 1985 F Date Time Provider Department 06/19/21 3:20 PM CLAIRE PIMENTEL OBCODYWGurdeep During your visit today, we recorded the following information about you: Blood pressure Weight Last Period 114/70 76.7 kg 06/17/21 Claire Wilde MD 06/19/2021 4:02 PM Signed Meat Trimmer offered: Patient declines. Erasmo Sparks is a 35 year old female who presents for concerns regarding heavy menses. Patient delivered spontaneous vaginal delivery 02/18/2021. Has not followed up for her visit. Patient states had menses in March skipped April and then started 2 days ago. Patient states yesterday her bleeding was significantly heavier than what she is used to. She states she was soaking a pad approximately every 2 hours. Patient states that she also passed some tissue and took a picture of it. Patient states today bleeding is moderate flow. Patient is not currently on anything for control. Patient states she took a home test yesterday and it was negative. Patient is interested in control that will not affect her milk supply. Patient states since going back to work her milk supply has decreased some. Patient denies any chest pain shortness of breath or dizziness at the current time. Patient states she does get some dizzy spells when she is pumping. Patient attributes the dizzy spells to lack of calories. Patient states she is staying hydrated throughout the day. She is trying to increase her calorie count. OB History T1 L1 SAB0 IAB0 Ectopic0 Multiple0 Live Births1 [employer] History LMP: 06/17/2021, Age at Menarche: Age at First : Age at Menopause: [employer] History Comments: Sexual Activity: Yes; Male Contraception: No contraception data on record PAST MEDICAL HISTORY Diagnosis Date - anxiety - Dysmenorrhea - Dyspareunia - Female infertility - Mononucleosis 04/26/2002 - Psoriasis PAST SURGICAL HISTORY Procedure Laterality Date - ARTIFICIAL INSEMINATION INTRA-CERVICAL - HYSTEROSCOPY, DIAGNOSTIC (SEPARATE - PAST SURGICAL HISTORY OF 01/24/2009 wisdom teeth extraction FAMILY HISTORY Problem Relation Age of Onset - Hyperlipidemia Mother - other (anemia) Mother - Diabetes Paternal Grandmother - other (Lung Cancer) Maternal Grandmother Smoker, - Diabetes Paternal Grandfather - Neuropathy Paternal Grandfather - other (Heart problems) Paternal Grandfather - No Known Problems Father - other (cirrhosis of liver-ETOH) Brother - Diabetes Maternal Grandfather Social History Tobacco Use - Smoking status: Former Smoker Years: 11.00 Types: Cigarettes Quit date: 09/11/2019 Years since quittin.7 - Smokeless tobacco: Never Used - Tobacco comment: occasional cigarette and was counseled Smokes 1 cigarette once a month Vaping Use - Vaping Use: Never used Substance Use Topics - Alcohol use: Not Currently Comment: every other weekend-3 - Drug use: No Current Outpatient Medications Medication Sig - Rriwyrpk-Gu-Fkr-Fe-FA ( VITAMIN) tab Take 1 tablet by mouth. - acetaminophen (TYLENOL) 325 mg tablet Take 650 mg by mouth every 6 hours as needed. - MAGNESIUM ORAL Take by mouth. (Patient not taking: Reported on 06/19/2021 ) No current facility-administered medications for this visit. Allergies As of Date: 06/19/2021 Allergen Noted Reaction VICODIN [HYDROCODONE-ACETAMIN OPHE*07/14/2011 Vomiting Fully Assessed 06/19/2021 REVIEW OF SYSTEMS Abdomen: no pain Bladder: no dysuria .. Expanded ROS: GENERAL: Negative for fever Allergies and current medication updated:Yes EXAM: BP 114/70 Wt 169 lb (76.7kg) LMP 06/17/2021 GENERAL: pleasant, female in no apparent distress HEENT: Normocephalic and atraumatic NECK: full range of motion DERMATOLOGY: Normal, without lesions, non-icteric and non-hirsute BREAST: deferred ABDOMEN: Deferred PELVIC: deferred BIMANUAL: deferred NEURO: alert and oriented x3,exam grossly non-focal EXTREMITIES: normal ASSESSMENT AND PLAN: Encounter Diagnosis ICD-10-CM 1. Excessive bleeding in premenopausal period N92.4 2. Lactating mother Z39.1 3. Discussed irregular and heavier cycles after delivery. We discussed that this can continue 6 to 12 months. Discussed options for heavy menses including progesterone only pills or Mirena IUD. Patient declines Mirena IUD at this time. Patient is interested in trying the progesterone only pills. No contraindication to start. We discussed proper use of them. We discussed timeframe for taking them. 4, patient had a picture of the tissue that she passed. Appears to be an endometrial cast. Reassurance given. 5.call if concerns or stopped breast feeding and would like to switch to combined ocps. I spent a total of 20 minutes on the (more content not included)... [facility]OB[facility]WM[facility] ERASMO SPARKS ([id number]) 1985 F Date Time Provider Department 06/18/21 ARTURO GREEN During your visit today, we recorded the following information about you: Camilla Bella RN 06/18/2021 12:17 PM Signed Patient calling with heavy bleeding. Delivered 02/18/21 and was never seen for PP visit. After delivery first menses was in March. She did not have one in April and she had 2 negative UPTs at that time. She now started bleeding 06/16/21 PM. Initially was light, but since yesterday it has become heavier. She used a tampon and pad and yesterday and she was soaking through super plus tampon in less then 1 hour at times. Now with pad only this morning she is changing it about every 2 hours. Today she passed a white piece of solid like tissue a little larger then pea size too. No chest pain, shortness of breath or fatigue. Feels a little dizzy at times though. Having some cramping with the bleeding. Rating 3/10 on pain scale today. Ibuprofen does help. She is still. Please advise. Camilla Green MD 06/18/2021 3:32 PM Signed Recommend appointment as she has not been seen since delivery with KJ. Can see KJ tomorrow or I have a new pt slot on Wednesday. Give bleeding precautions. Thanks Carmen Parham RN 06/18/2021 3:43 PM Signed Patient called and appointment scheduled. Carmen Parham RN Allergies As of Date: 06/18/2021 Noted Allergy Reaction VICODIN (HYDROCODONE-ACETAMIN OPHE*07/14/2011 11 - Vomiting Date Reviewed: 02/17/2021 Reviewed by: Nancie Hoskins Ma - Fully Assessed Reason for Visit: Irregular Bleeding [Other] Prescriptions as of 06/18/2021 - acetaminophen (TYLENOL) 325 mg tablet Take 650 mg by mouth every 6 hours as needed. - MAGNESIUM ORAL Take by mouth. - Ksrrhnmf-Kg-Rdi-Fe-FA ( VITAMIN) tab Take 1 tablet by mouth. 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 [Z14.8] 07/11/2020 History of anxiety [Z86.59] 07/11/2020 Patient request for diagnostic testing [Z01.89] 07/11/2020 01/15/2021 Twin with single intrauterine [*07/15/2020 COVID-19 vaccine series declined [Z28.21] 01/01/2021 Encounter for supervision of normal first pregn*01/01/2021 Encounter Status:Closed by CARMEN PARHAM RN on 06/18/21 Normal [facility] Jose Juan 05-01-2021 CNPN Telephone (OBGYWM) ERASMO SPARKS ([id number]) 1985 F Date Time Provider Department 05/01/21 AMBER VEGA During your visit today, we recorded the following information about you: Shanice Decker LPN 05/01/2021 4:09 PM Signed Patient had a 02/18/21 and did not have a visit. Patient needs a letter for her employer so she can return to work. Can she get a letter or will she need to schedule an appointment? If appointment is needed, patient prefers virtual. Amber Vega APRN.CNM 05/01/2021 4:15 PM Signed If she needs a medical clearance letter, she will need to be seen. If just needs a letter to return to work and not having any issues or concerns we can send that. MARGE James RN 05/01/2021 4:26 PM Signed Patient just needs return to work letter. Patient going back to work on 05/05/21. Would like letter released to [facility]. Letter prepared and released to [employer]. Carmen Parham RN Allergies As of Date: 05/01/2021 Noted Allergy Reaction VICODIN (HYDROCODONE-ACETAMIN OPHE*07/14/2011 11 - Vomiting Date Reviewed: 02/17/2021 Reviewed by: Nancie Hoskins Ma - Fully Assessed Reason for Visit: Patient Question [1477] Prescriptions as of 05/01/2021 - acetaminophen (TYLENOL) 325 mg tablet Take 650 mg by mouth every 6 hours as needed. - MAGNESIUM ORAL Take by mouth. - Rzjgowna-Vd-Irp-Fe-FA ( VITAMIN) tab Take 1 tablet by mouth. 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] 07/11/2020 History of anxiety [Z86.59] 07/11/2020 Patient request for diagnostic testing [Z01.89] 07/11/2020 01/15/2021 Twin with single intrauterine [*07/15/2020 COVID-19 vaccine series declined [Z28.21] 01/01/2021 Encounter for supervision of normal first pregn*01/01/2021 Letter Text Encounter Status:Closed by AMBER VEGA on 05/01/21 Normal [facility] Jose Juan 03-11-2021 MARIO ALBERTO Telephone (OBGYWM) ERASMO SPARKS ([id number]) 1985 F Date Time Provider Department 03/11/21 THAIS MOORE During your visit today, we recorded the following information about you: Lisa Elizabet VALENZUELA 03/11/2021 3:55 PM Signed Pt calling and stated that she is 3 weeks post and is and wanting to know if she can use magnesium for headaches. Pt stated that she just had one headache since delivery that started yesterday. Pt has tried tylenol without any relief. Pt stated that she was able to obtain relief with magnesium during . Is this safe with . Lisa Moser MD 03/11/2021 5:38 PM Signed absolutely she can use this for headaches. If severe, persistent MORALES should be seen for eval or she should check her BP at home. Thanks. MD Micha Frey RN 03/12/2021 8:01 AM Signed Left message for patient to return phone call Micha Suarez RN 03/12/2021 1:07 PM Signed Patient called back and states headache has gone away. She is going to monitor blood pressures at home. Allergies As of Date: 03/11/2021 Noted Allergy Reaction VICODIN (HYDROCODONE-ACETAMIN OPHE*07/14/2011 11 - Vomiting Date Reviewed: 02/17/2021 Reviewed by: Nancie Hoskins Ma - Fully Assessed Reason for Visit: Patient Question [9198] Prescriptions as of 03/12/2021 - acetaminophen (TYLENOL) 325 mg tablet Take 650 mg by mouth every 6 hours as needed. - MAGNESIUM ORAL Take by mouth. - Mzsnrbrb-Ii-Vzs-Fe-FA ( VITAMIN) tab Take 1 tablet by mouth. 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] 07/11/2020 History of anxiety [Z86.59] 07/11/2020 Patient request for diagnostic testing [Z01.89] 07/11/2020 01/15/2021 Twin with single intrauterine [*07/15/2020 COVID-19 vaccine series declined [Z28.21] 01/01/2021 Encounter for supervision of normal first pregn*01/01/2021 Encounter Status:Closed by MICHA SUAREZ RN on 03/12/21 Normal [facility] CNPIsamar 02-17-2021 CNPN Telephone (OBGYWM) ERASMO SPARKS ([id number]) 1985 F Date Time Provider Department 02/17/21 ELLIE PITT During your visit today, we recorded the following information about you: Becky Quiroz RN 02/17/2021 9:38 AM Signed 39w5d Patient was seen in [facility] on Wednesday to rule out ROM. She was 1cm at that time and discharged home. Her contractions have been 10-12 min apart since yesterday at 4PM. Painful at times, other times they are 5 on a pain scale. Has only slept 4 hours in the last couple of days. Would you like patient seen for evaluation? No available openings with you today. Becky Pitt APRN.CNM 02/17/2021 9:48 AM Signed Can see patient at 10, 1015 or 1130. MARGE Clark RN 02/17/2021 9:48 AM Signed Patient called and appointment given for 1130 per request. Caremn Parham RN Allergies As of Date: 02/17/2021 Noted Allergy Reaction VICODIN (HYDROCODONE-ACETAMIN OPHE*07/14/2011 11 - Vomiting Date Reviewed: 02/12/2021 Reviewed by: Joanna Lo Ma - Fully Assessed Reason for Visit: Early Labor [Other] Question (OB Question) [1552] Prescriptions as of 02/17/2021 - cyclobenzaprine (FLEXERIL) 5 mg tablet Take 1 tablet by mouth twice daily as needed. - acetaminophen (TYLENOL) 325 mg tablet Take 650 mg by mouth every 6 hours as needed. - MAGNESIUM ORAL Take by mouth. - Ivqffspb-Nu-Vgd-Fe-FA ( VITAMIN) tab Take 1 tablet by mouth. 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] 07/11/2020 History of anxiety [Z86.59] 07/11/2020 Patient request for diagnostic testing [Z01.89] 07/11/2020 01/15/2021 Twin with single intrauterine [*07/15/2020 COVID-19 vaccine series declined [Z28.21] 01/01/2021 Encounter for supervision of normal first pregn*01/01/2021 Encounter Status:Closed by CARMEN PARHAM RN on 02/17/21 Normal [facility] GROUP B STREP PCRon 01-23-20 GROUP B STREP PCR Negative Normal [facility] Comment on above: Performed By: #### G BPCR ####[facility] [address] [place], [place] [phone] 50g, 1hr gest. [facility]05 Glucose [Mass/Vol] 114 mg/dL Normal 74-134 [facility] Comment on above: Result Comment: [facility] Congress of Obstetricians and Gynecologists (Liliana/Ines) guidelines state a gestational diabetes mellitus positive screen is made, in women not previously diagnosed with overt diabetes, when the 1 hr plasma glucose level is equal to or above 140 mg/dL. The [facility] Envelope Machine Adjuster and [facility] [place] recommends a 135 mg/dL cutoff. Performed By: #### S YPHTX, GLTGST ####[facility]level[address] [place] [phone] CBC and Differentialon 12-05 Abs Baso <0.03 Normal <0.11 [facility] Comment on above: Performed By: #### S YPHTX, GLTGST ####[place] [address] [place] [phone] Abs Travis 0.79 k/uL Normal <0.87 [facility] Comment on above: Performed By: #### S YPHTX, GLTGST ####[place] [address] [place] [phone] Abs Neut 8.56 k/uL High 1.45-7.50 [facility] Comment on above: Performed By: #### S YPHTX, GLTGST ####[place] [address] [phone] Absolute nRBC <0.01 Normal <0.01 [facility] Comment on above: Performed By: #### S YPHTX, GLTGST ####[place] [address] [place] [phone] Basophils/100 WBC (Bld) 0.2 % Normal [facility] Comment on above: Performed By: #### S YPHTX GLTGST ####[place] [id number]Clevel[address] [place] [phone] DTYPE Auto Diff Normal [facility] Comment on above: Performed By: #### S YPHTX, GLTGST ####[place] [id number] [place] [phone] Eosinophils (Bld) [#/Vol] 0.10 10*3/uL Normal <0.46 [facility] Comment on above: Performed By: #### S YPHTX GLTGST ####[place] [id number] [place] [phone] Eosinophils/100 WBC (Bld) 0.9 % Normal [facility] Comment on above: Performed By: #### S YPHTX GLTGST ####[facility] [place] [phone] Erythrocyte distribution width (RBC) [Ratio] 13.3 % Normal 11.5-15.0 [facility] Comment on above: Performed By: #### S YPHTX GLTGST ####[place] [address] [place] [phone] Hematocrit (Bld) [Volume fraction] 35.1 % Low 36.0-46.0 [facility] Comment on above: Performed By: #### S YPHTX GLTGST ####[place] [address]CS[address] [place], [place] [phone] Hemoglobin (Bld) [Mass/Vol] 12.4 g/dL Normal 11.5-15.5 [facility] Comment on above: Performed By: #### S YPHTX GLTGST ####[place] [address] [place] [phone] Lymphocytes (Bld) [#/Vol] 1.42 10*3/uL Normal 1.00-4.00 [facility] Comment on above: Performed By: #### S YPHTX GLTGST ####[facility] [place] [phone] Lymphocytes/100 WBC (Bld) 13.0 % Normal [facility] Comment on above: Performed By: #### S YPHTX GLTGST ####[place] [id number] AveCSanta [place], [place] [phone] MCH 30.3 pG Normal 26.0-34.0 [facility] Comment on above: Performed By: #### S YPHTX GLTGST ####[place] [id number] [place] [phone] MCHC (RBC) [Mass/Vol] 35.3 g/dL Normal 30.5-36.0 [facility] Comment on above: Performed By: #### S YPHTX, GLTGST ####[place] [id number]level[address] [place] [phone] MCV (RBC) [Entitic vol] 85.8 fL Normal 80.0-100.0 [facility] Comment on above: Performed By: #### S YPHTX, GLTGST ####[place] [address] [place] [phone] Monocytes/100 WBC (Bld) 7.3 % Normal [facility] Comment on above: Performed By: #### S YPHTX GLTGST ####[place] [address] [place] [phone] Neutrophils/100 WBC (Bld) 78.6 % Normal [facility] Comment on above: Performed By: #### S YPHTX, GLTGST ####[place] [address] [place] [phone] NRBCs 0.0 /100 WBC Normal 0 [facility] Comment on above: Performed By: #### S YPHTX, GLTGST ####[place] [id number]Clevel[address] [phone] Platelet mean volume (Bld) [Entitic vol] 9.4 fL Normal 9.0-12.7 [facility] Comment on above: Performed By: #### S YPHTX, GLTGST ####[place] [id number]level[address] [phone] Platelets (Bld) [#/Vol] 210 10*3/uL Normal 150-400 [facility] Comment on above: Performed By: #### S YPHTX, GLTGST ####[place] [id number], [place] [phone] RBC (Bld) [#/Vol] 4.09 10*6/uL Normal 3.90-5.20 [facility] Comment on above: Performed By: #### S YPHTX, GLTGST ####[facility] [place], [place] [phone] WBC (Bld) [#/Vol] 10.89 10*3/uL Normal 3.70-11.00 [facility] Comment on above: Performed By: #### S YPHTX, GLTGST ####[place] [id number] [place], [place] [phone] Syphilis Ttl w/Reflxon 12-05 Syphilis Interp Cannot exclude recen t Treponemal infection if specimen collected within 7 to 10 days after appearance of suspect lesions or 2 to 3 weeks after an exposure. Clinical correlation is required. Normal [facility] Comment on above: Performed By: #### S YPHTX, GLTGST ####[facility] [place], [place] [phone] Syphilis Screen Rslt Non-Reactive Normal Non Reactive [facility] Comment on above: Performed By: #### S YPHTX, GLTGST ####[facility] [place], [place] [phone] CNCOon 10-07-2020 CNCO Letter Text Normal [facility] CNOVon 10-07-2020 CNOV Office Visit (OBGYWM ) ERASMO SPARKS ([id number]) 1985 F Date Time Provider Department 10/07/20 3:50 PM CLAIRE PIMENTEL OBGYWM During your visit today, we recorded the following information about you: Blood pressure Weight 110/68 79.4 kg Claire Wilde MD 10/07/2020 4:40 PM Signed Erasmo Sparks is a 35 year old female who presents today for a vulvar lesion excision Indication: new vulvar lesion. UNIVERSAL PROTOCOL / SAFETY CHECKLIST Procedure to be performed: removal vulvar skin tag Sign in Communication: Completed Time Out: Team Confirms the Correct Patient, Correct Procedure, Correct Site and Site Marking, Correct Position (if applicable), Prep and Dry Time (if applicable). Time: Affirmation of Time Out: YES Sign Out Discussion: Completed Claire Wilde MD PROCEDURE NOTE: GROSS LESIONS: Yes, vulvar condyloma EXCISION: Area was cleansed with betadine and anesthetized with 2mL 1% lidocaine with 1:100,000 epi. Lesion cut at base with sterile scissor. HEMOSTASIS: Obtained with silver nitrate Procedure Summary: Patient tolerated procedure well. ASSESSMENT: Vulvar condyloma PLAN: Specimens labeled and sent to Pathology. Will notify patient of results in 1-2 weeks. Claire Wilde MD Referring Provider: CAROLEE MOSER [[id number]] Allergies As of Date: 10/07/2020 Noted Allergy Reaction VICODIN (HYDROCODONE-ACETAMIN OPHE*07/14/2011 11 - Vomiting Date Reviewed: 10/04/2020 Reviewed by: Ellie Pitt APRN.CNM - Fully Assessed Reason for Visit: skin tag removal [Other] Primary Visit Diagnosis:Vulvar lesion [N90.89] Order(s):SURGICAL PATHOLOGY [8605552] Order #: [id number] Prescriptions as of 10/07/2020 Sig: ACETAMINOPHEN 325 MG TABLET Take 650 mg by mouth every 6 * MAGNESIUM ORAL Take by mouth. VITAMIN TABLET Take 1 tablet by mouth. Problem List As Of Date 10/07/2020 Noted Resolved Dyspareunia [WNT7990] 07/14/2011 Dysmenorrhea [N94.6] 07/14/2011 resulting from assisted reproductive *07/11/2020 Genetic carrier [Z14.8] 07/11/2020 History of anxiety [Z86.59] 07/11/2020 Patient request for diagnostic testing [Z01.89] 07/11/2020 Twin with single intrauterine [*07/15/2020 Encounter Status:Closed by CLAIRE REYNOSO on 10/07/20 Normal [facility] SURGICAL PATHOLOGYon 021 SURGICAL PATHOLOGY Specimen originated from [facility] Specimen #: [id number] Submitting Physician: CAROLEE MOSER M.D. ([id number]) FINAL DIAGNOSIS Vulva, excision: - Condyloma acuminatum. - See comment. COMMENT Chromogenic in situ hybridization (CISH) is positive for low-risk HPV, supporting the above diagnosis. High-risk HPV is negative. Laboratory Developed Test (LDT) Disclaimer: Positive and negative controls stain appropriately. Performance characteristics of immunohistochemical, immunofluorescent and chromogenic in-situ hybridization tests have been determined by [facility]'s [facility] and [facility] [place] ([facility]) in a manner consistent with CLIA requirements. One or more of these tests have not been cleared or approved by the FDA. [facility] is regulated under CLIA as qualified to perform high-complexity testing. These tests are used for clinical purposes. They should not be regarded as investigational or for research. G/ian 10/09/2020 Js Nicholson M.D. (Electronic Signature) ____ SPECIMEN SUBMITTED A: VULVA, EXCISION/BIOPSY CLINICAL DATA CONDYLOMA GROSS DESCRIPTION A. Received in formalin is a segment of licona-silvestre rubbery skin measuring 0.8 x 0.3 x 0.7 cm. The specimen is bisected. Totally submitted in one cassette. Gross examination performed at [facility], [address] [place] [address] FFS 10/08/2020 8:02:00 PM Date of Report: 10/10/2020 Date of Procedure: 10/07/2020 Date of Receipt: 10/08/2020 Submitted by: CAROLEE MOSER M.D. ([id number]) Location: [facility] Diagnostic interpretation performed at [place] [address]. [place] Number: [id number] Normal [facility] Alpha Feto Maternalon 2020 Note View results in Scanned Documents link when available. Normal [facility] Comment on above: Performed By: #### A FPMAT ####[address] [phone] Interp Negative Normal Screen Negative [facility] Comment on above: Performed By: #### A FPMAT ####[address] [phone] CNPNon 08-21-2020 [facility] ERASMO SPARKS ([id number]) 1985 F Date Time Provider Department 08/21/20 FELIPE TREVIÑO OBGYF2 During your visit today, we recorded the following information about you: Leonila Arias RN 08/21/2020 12:49 PM Signed Called Erasmo Brando Bridger and identified by name and date of . Erasmo Rameshder was informed of negative Non-Invasive Testing (NIPT) results for Trisomy 21, Trisomy 18 and Trisomy 13. Patient was also notified of the result of no sex chromosome aneuploidy detected. Patient wishes to know sex, which is reported as: female. Reviewed with patient Erasmo Sparks that NIPT is considered screening and not diagnostic, so this result greatly reduces, but does not eliminate the chance that the fetus could have trisomy 21, trisomy 18, trisomy 13 or sex chromosome aneuploidy. Erasmo Sparks indicated understanding this information. Patient advised to follow up with AFP neural tube defect screening (blood draw) at 16-18 weeks gestation and 18-20 week detailed anatomy ultrasound. Also instructed to follow-up with Primary OB Provider. Leonila Arias RN Allergies As of Date: 08/21/2020 Noted Allergy Reaction VICODIN (HYDROCODONE-ACETAMIN OPHE*07/14/2011 11 - Vomiting Date Reviewed: 08/16/2020 Reviewed by: Krista Jaimes) Wili - Fully Assessed Reason for Visit: Results [95] Prescriptions as of 08/21/2020 Sig: PYRIDOXINE (VITAMIN B6) 50 MG* Take 1 tablet by mouth twice * VITAMIN TABLET Take 1 tablet by mouth. Problem List As Of Date 08/21/2020 Noted Resolved Dyspareunia [XUD0325] 07/14/2011 Dysmenorrhea [N94.6] 07/14/2011 resulting from assisted reproductive *07/11/2020 Genetic carrier [Z14.8] 07/11/2020 History of anxiety [Z86.59] 07/11/2020 Patient request for diagnostic testing [Z01.89] 07/11/2020 Twin with single intrauterine [*07/15/2020 Encounter Status:Closed by LEONILA ARIAS RN on 08/21/20 Normal [facility] CNCOon 08-20-2020 CNCO Letter Text Letter Text Normal [facility] CBCon 08-16-2020 Absolute nRBC <0.01 Normal <0.01 [facility] Erythrocyte distribution width (RBC) [Ratio] 13.0 % Normal 11.5-15.0 [facility] Hematocrit (Bld) [Volume fraction] 37.3 % Normal 36.0-46.0 [facility] Hemoglobin (Bld) [Mass/Vol] 13.0 g/dL Normal 11.5-15.5 [facility] MCH 29.5 pG Normal 26.0-34.0 [facility] MCHC (RBC) [Mass/Vol] 34.9 g/dL Normal 30.5-36.0 [facility] MCV (RBC) [Entitic vol] 84.6 fL Normal 80.0-100.0 [facility] Platelet mean volume (Bld) [Entitic vol] 9.3 fL Normal 9.0-12.7 [facility] Platelets (Bld) [#/Vol] 220 10*3/uL Normal 150-400 [facility] RBC (Bld) [#/Vol] 4.41 10*6/uL Normal 3.90-5.20 [facility] WBC (Bld) [#/Vol] 10.26 10*3/uL Normal 3.70-11.00 [facility] [id number] Ag +HIV12 Abon 08-16 HIV 12 Ag/Ab Non-Reactive Normal Non Reactive [facility] Comment on above: Performed By: #### R UBIGG, HBSAG, AHCV1B, HIV12C, SYPHTX ####[place] [id number] [place], [place] [phone] HIV-1/2 Antibody Normal [facility] Comment on above: Result Comment: Test Not Indicated Negative No evidence of HIV-1 or HIV-2 infection. Should recent infection be suspected, repeat testing may be considered 2-3 weeks after this draw. HIV Information: [place] Rev. Code 3701.243(E): This information has been disclosed to you from confidential records protected from disclosure by state law. You shall make no further disclosure of this information without the specific, written, and informed release of the individual to whom it pertains or as otherwise permitted by state law. A general authorization for the release of medical or other information is not sufficient for the purpose of the release of HIV test results or diagnoses. Performed By: #### R UBIGG, HBSAG, AHCV1B, HIV12C, SYPHTX ####[facility] [place], [place] [phone] Hep C Ab IA w/Confon 021 Hepatitis C Ab IA Negative Normal Negative [facility] Comment on above: Performed By: #### R UBIGG, HBSAG, AHCV1B, HIV12C, SYPHTX ####[facility] [address] [place], [place] [phone] Hepatitis B Surf. Agon 08-16 Hepatitis B Surf. Ag Negative Normal Negative [facility] Comment on above: Performed By: #### R UBIGG, HBSAG, AHCV1B, HIV12C, SYPHTX ####[facility] [address] [place], [place] [phone] [id number] PLUSon 08-16-2020 About the test See Notes [facility] Comment on above: Result Comment: (NOT E) The MaterniT(R) 21 PLUS laboratory-developed test (LDT) analyzes circulating cell-free DNA from a maternal blood sample. The test is indicated for use in women with increased risk for chromosomal aneuploidy. Validation data on twin pregnancies is limited and the ability of this test to detect aneuploidy in a triplet has not yet been validated. Chromosome 13 Negative Normal [facility] Chromosome 18 Negative Normal [facility] Chromosome 21 Negative Normal [facility] Fraction 8% Normal [facility] Sex See Notes Normal [facility] Comment on above: Result Comment: (NOT E) Consistent with Female Primer Inspector Franny See Notes [facility] Comment on above: Result Comment: (NOT E) This specimen showed an expected representation of chromosome 21, 18 and 13 material. Clinical correlation is suggested. Limitations See Notes [facility] Comment on above: Result Comment: (NOT E) While the results of these tests are highly accurate, discordant results, including inaccurate sex prediction, may occur due to placental, maternal, or mosaicism or neoplasm; vanishing twin; prior maternal organ transplant; or other causes. Sex chromosomal aneuploidies are not reportable for known multiple gestations. These tests are screening tests and not diagnostic; they do not replace the accuracy and precision of diagnosis with CVS or amniocentesis. A patient with a positive test result should be referred for genetic counseling and offered invasive diagnosis for confirmation of test results.[5] A negative result does not ensure an unaffected nor does it exclude the possibility of other chromosomal abnormalities or defects which are not a part of these tests. An uninformative result may be reported, the causes of which may include, but are not limited to, insufficient sequencing coverage, noise or artifacts in the region, amplification or sequencing bias, or insufficient fraction. These tests are not intended to identify pregnancies at risk for neural tube defects or ventral wall defects. Testing for whole chromosome abnormalities (including sex chromosomes) and for subchromosomal abnormalities could lead to the potential discovery of both and maternal genomic abnormalities that could have major, minor, or no, clinical significance. Evaluating the significance of a positive or a non-reportable result may involve both invasive testing and additional studies on the mother. Such investigations may lead to a diagnosis of maternal chromosomal or subchromosomal abnormalities, which on occasion may be associated with benign or malignant maternal neoplasms. These tests may not accurately identify triploidy, balanced rearrangements, or the precise location of subchromosomal duplications or deletions; these may be detected by diagnosis with CVS or amniocentesis. The ability to report results may be impacted by maternal BMI, maternal weight, maternal systemic lupus erythematosus (SLE) and/or by certain pharmaceutical agents such as low molecular weight heparin (for example: Lovenox(R), Xaparin(R), Clexane(R) and Fragmin(R)). The results of this testing, including the benefits and limitations, should be discussed with a qualified healthcare provider. management decisions, including termination of the , should not be based on the results of these tests alone. The healthcare provider is responsible for the use of this information in the management of their patient. MaterniT Result Negative Normal [facility] Method See Notes Normal [facility] Comment on above: Result Comment: (NOT E) Circulating cell-free DNA was purified from the plasma component of maternal blood. The extracted DNA was then converted into a genomic DNA library for aneuploidy analysis of chromosomes 21, 18, and 13 via next generation sequencing.[1] Optional findings based on the test order include sex chromosome aneuploidy (SCA)[2], and enhanced sequencing series (ESS)[3], which will only be reported on as an additional finding when an abnormality is detected. SCA testing includes information on X and Y representation, while ESS testing includes deletions in selected regions (22q, 15q, 11q, 8q, 5p, 4p, 1p) and trisomy of chromosomes 16 and 22. Monosomy X Not detected Normal [facility] MT21 Approval See Notes Normal [facility] Comment on above: Result Comment: (NOT E) Elton Dennison MD, PhD, Director, [employer] Neg Predictive Value Note Normal [facility] Comment on above: Result Comment: (NOT E) The Negative Predictive Value (NPV) for trisomy 21, 18, and 13 is greater than 99%. The NPV for SCA and ESS cannot be calculated as SCA and ESS are only reported when an abnormality is detected. Performance See Notes [facility] Comment on above: Result Comment: (NOT E) The performance characteristics of the MaterniT(R) 21 PLUS laboratory-developed test (LDT) have been determined in a clinical validation study with women at increased risk for chromosomal aneuploidy.[1],[2],[3],[4] Performance Data Note Normal [facility] Comment on above: Result Comment: (NOT E) ! Y-Chromosome ( Sex) ! Accuracy: 99.4% ! ! ! ! Region (associated syndrome) ! Est. Sens# ! Est. Spec ! ! ! ! Trisomy 21 (Down Syndrome) ! 99.1% ! 99.9% ! ! ! ! Trisomy 18 (Yao Syndrome) ! >99.9% ! 99.6% ! ! ! ! Trisomy 13 (Patau Syndrome) ! 91.7% ! 99.7% ! ! ! ! Sex Chromosome Aneuploidies## ! 96.2% ! 99.7% ! ! ! * As reported in [facility] database [id number] [http://dbsearch.clinicalGrapewordome.org/search/ ] # Estimated Sensitivity. Sensitivity estimated across the observed size distribution of each syndrome [per [facility] database nstd37] and across the range of fractions observed in routine clinical NIPT. Actual sensitivity can also be influenced by other factors such as the size of the event, total sequence counts, amplification bias, or sequence bias. ## [place] gestation only. Pos Predictive Value N/A Normal [facility] References See Notes Normal [facility] Comment on above: Result Comment: (NOT E) 1. Felice CORONA, et al. Jessica Med. 2012;14(3):296-305. 2. Edmond TOUSSAINT, et al. Prenat Diag. 2013;33(6):591-597. 3. Demian C, et al. Clin Chem. 2015 Apr;61(4):608-616. 4. Felice CORONA, et al. Jessica Med. 2011;13(11):913-920. 5. ACOG/SMFM Joint Committee Opinion No. 545, Mar 2012. Test Note See Notes Normal [facility] Comment on above: Result Comment: (NOT E) This test was developed and its performance characteristics determined by [employer]. It has not been cleared or approved by the Food and Drug Administration. This laboratory is certified under the Clinical Laboratory Improvement Amendments (CLIA) as qualified to perform high complexity clinical laboratory testing and accredited by the [employer] [place] (CAP). If there is future clinical need for adding MaterniT GENOME testing, this specimen will be available until term. [facility] samples will not be retained beyond 60 days. [facility] patients will have to send a new sample for re-sequencing ([facility] Test Code: [id number]). XXX Syndrome Not detected Normal [facility] XXY Syndrome Not detected Normal [facility] XYY Syndrome Not detected Normal [facility] Rubella IgG Antibodyon 08-16 Rubella IgG Ab 17.00 Index Value Normal [facility] Comment on above: Result Comment: Inde x values are interpreted as follows: Negative specimens <0.90 Equivocol specimens 0.90 to 0.99 Positive specimens >0.99 The magnitude of the measured result is not indicative of the amount of antibody present. Performed By: #### R UBIGG, HBSAG, AHCV1B, HIV12C, SYPHTX ####[place] [id number] [place], [place] [phone] Rubella IgG Ab, Qual Positive Critically abnormal Negative [facility] Comment on above: Result Comment: Samp le is considered positive for IgG antibodies to rubella virus. A positive result indicates previous exposure to Rubella virus or vaccination. Performed By: #### R UBIGG, HBSAG, AHCV1B, HIV12C, SYPHTX ####[facility] [place], [place] [phone] Syphilis Ttl w/Reflxon 08-16 Syphilis Interp Cannot exclude recen t Treponemal infection if specimen collected within 7 to 10 days after appearance of suspect lesions or 2 to 3 weeks after an exposure. Clinical correlation is required. Normal [facility] Comment on above: Performed By: #### R UBIGG, HBSAG, AHCV1B, HIV12C, SYPHTX ####[facility] [place], [place] [phone] Syphilis Screen Rslt Non-Reactive Normal Non Reactive [facility] Comment on above: Performed By: #### R UBIGG, HBSAG, AHCV1B, HIV12C, SYPHTX ####[facility] [place], [place] [phone] Type and Scr,Prenatlon 08-16 ABO/RH(D) AB POSTIVE Normal [facility] Comment on above: Performed By: #### T SPN ####[facility] [address] [place], [place] [phone] CNPNon 08-01-2020 CNPN Telephone (OBGYWM) ERASMO SPARKS ([id number]) 1985 F Date Time Provider Department 08/01/20 AMBER VEGA) OBGYWM During your visit today, we recorded the following information about you: Lisa Mcneal LPN 08/01/2020 10:08 AM Signed Completed [facility] paperwork placed on providers desk for signature. Lisa Mcneal LPN 08/02/2020 10:27 AM Signed [facility] paperwork completed, faxed to employer and scanned into EMR and filed in VASCULAR SURGEON suite. Lisa Mcneal LPN' Allergies As of Date: 08/01/2020 Noted Allergy Reaction VICODIN (HYDROCODONE-ACETAMIN OPHE*07/14/2011 11 - Vomiting Date Reviewed: 07/31/2020 Reviewed by: Amber Rubio) Silvia - Fully Assessed Reason for Visit: [place] Paperwork [4185] Prescriptions as of 08/01/2020 Sig: PYRIDOXINE (VITAMIN B6) 50 MG* Take 1 tablet by mouth twice * VITAMIN TABLET Take 1 tablet by mouth. Problem List As Of Date 08/01/2020 Noted Resolved Dyspareunia [[id number]] 07/14/2011 Dysmenorrhea [N94.6] 07/14/2011 resulting from assisted reproductive *07/11/2020 Genetic carrier [Z14.8] 07/11/2020 History of anxiety [Z86.59] 07/11/2020 Patient request for diagnostic testing [Z01.89] 07/11/2020 Twin with single intrauterine [*07/15/2020 Encounter Status:Closed by LISA MCNEAL LPN on 08/02/20 Normal [facility] GC/Chlamydia Amplifon 2020 Chlamydia Amplif Negative Normal [facility] Comment on above: Performed By: #### G CCT ####[place] [phone] GC Amplification Negative Normal [facility] Comment on above: Performed By: #### G CCT ####[place] [phone] GC/Chlam Amp Source Cervix Normal [facility] Comment on above: Performed By: #### G CCT ####[place] [phone] Toxicology Screen,Uron 07-15 Amphetamines, Urine Negative Normal Negative [facility] Comment on above: Result Comment: Cuto ff threshold at 1000 ng/mL. Performed By: #### U TOX2 ####[place] [phone] Barbiturates, Urine Negative Normal Negative [facility] Comment on above: Result Comment: Cuto ff threshold at 200 ng/mL. Performed By: #### U TOX2 ####[place] [phone] Benzodiazepines, Ur Negative Normal Negative [facility] Comment on above: Result Comment: Cuto ff threshold at 200 ng/mL. Performed By: #### U TOX2 ####[facility] [place] [phone] Cannabinoids, Urine Negative Normal Negative [facility] Comment on above: Result Comment: Cuto ff threshold at 50 ng/mL. Performed By: #### U TOX2 ####[place] [address] [place] [phone] Cocaine, Urine Negative Normal Negative [facility] Comment on above: Result Comment: Cuto ff threshold at 300 ng/mL. Performed By: #### U TOX2 ####[place] [address] [place] [phone] Ethanol, Urine <11 Normal <11 [facility] Comment on above: Performed By: #### U TOX2 ####[place] [phone] Opiates, Urine Negative Normal Negative [facility] Comment on above: Result Comment: Cuto ff threshold at 300 ng/mL. Performed By: #### U TOX2 ####[place] [address] [place] [phone] Oxycodone, Urine Negative Normal Negative [facility] Comment on above: Result Comment: Cuto ff threshold at 100 ng/mL. Comment: Immunoassay screen only. Cross reactivity with other substances can occur with immunoassay screening. Detection of any drug(s) in this urine toxicology panel is presumptive only. These tests are for medical purposes only and should not be used for compliance monitoring, legal, or forensic use. Samples should be within normal physiological conditions (e.g. pH). This assay does not include adulteration/specimen validity testing. In clinical settings, confirmatory testing is at the practitioner's discretion [1]. If clinically indicated, confirmation by high specificity, quantitative methodology, which includes adulteration/specimen validity testing, may be requested on the same specimen through Client Services ([phone]) if contacted within 48 hours of initial testing. [1]Substance Abuse and Mental Health Services Administration (2012). Clinical Drug Testing in Primary Care Technical Assistance Publication Series 32. Department of Health and Human Services, [place], p.10. Performed By: #### U TOX2 ####[address] [phone] Phencyclidine, Urine Negative Normal Negative [facility] Comment on above: Result Comment: Cuto ff threshold at 25 ng/mL. Performed By: #### U TOX2 ####[address] [phone] Urine Cultureon 07-15-2020 Bacteria identified Cx Nom (U) Sp. Request/Comment: - Specimen received in preservative Culture Result - 10,000 - <50,000 CFU/ml Normal urogenital loraine Normal [facility] Comment on above: Performed By: #### U RCUL ####[address] [phone] Coronavirus 2019on 0 COVID 19 Result VASCULAR SURGEON Abnormal Negative for COVID19 (SARS CoV2) by PCR. [facility] Comment on above: Result Comment: Posi tive for This test was developed and its performance characteristics determined by [facility] [place]. This test has been authorized by FDA under an Emergency Use Authorization (EUA). This test has been validated in accordance with the FDA's Guidance Document Policy for Diagnostics Testing in Laboratories Certified to Perform High Complexity Testing under CLIA prior to Emergency use Authorization for Coronavirus Disease 2019 during the Public Health Emergency issued on June 24, 2019. COVID19 (SARS This test was developed and its performance characteristics determined by [facility]'s [facility] [place]. This test has been authorized by FDA under an Emergency Use Authorization (EUA). This test has been validated in accordance with the FDA's Guidance Document Policy for Diagnostics Testing in Laboratories Certified to Perform High Complexity Testing under CLIA prior to Emergency use Authorization for Coronavirus Disease 2019 during the Public Health Emergency issued on June 24, 2019. CoV2) by This test was developed and its performance characteristics determined by [facility] [place]. This test has been authorized by FDA under an Emergency Use Authorization (EUA). This test has been validated in accordance with the FDA's Guidance Document Policy for Diagnostics Testing in Laboratories Certified to Perform High Complexity Testing under CLIA prior to Emergency use Authorization for Coronavirus Disease 2019 during the Public Health Emergency issued on June 24, 2019. PCR.(*) This test was developed and its performance characteristics determined by [facility] [place]. This test has been authorized by FDA under an Emergency Use Authorization (EUA). This test has been validated in accordance with the FDA's Guidance Document Policy for Diagnostics Testing in Laboratories Certified to Perform High Complexity Testing under CLIA prior to Emergency use Authorization for Coronavirus Disease 2019 during the Public Health Emergency issued on June 24, 2019. Coronavirus 2019on 0 COVID 19 Source VASCULAR SURGEON Normal [facility] Comment on above: Result Comment: Naso pharyngeal Corrected on 03/15 AT 0955: Previously reported as NASAL Swab Corrected on 03/15 AT 0955: Previously reported as NASAL Coronavirus 2019on 0 COVID 19 Result VASCULAR SURGEON Normal Negative for COVID19 (SARS CoV2) by PCR. [facility] Comment on above: Result Comment: Nega tive for This test was developed and its performance characteristics determined by [facility] and [facility] [place]. This test has been authorized by FDA under an Emergency Use Authorization (EUA). This test has been validated in accordance with the FDA's Guidance Document Policy for Diagnostics Testing in Laboratories Certified to Perform High Complexity Testing under CLIA prior to Emergency use Authorization for Coronavirus Disease 2019 during the Public Health Emergency issued on June 24, 2019. COVID19 (SARS This test was developed and its performance characteristics determined by [facility] and [facility] [place]. This test has been authorized by FDA under an Emergency Use Authorization (EUA). This test has been validated in accordance with the FDA's Guidance Document Policy for Diagnostics Testing in Laboratories Certified to Perform High Complexity Testing under CLIA prior to Emergency use Authorization for Coronavirus Disease 2019 during the Public Health Emergency issued on June 24, 2019. CoV2) by PCR. This test was developed and its performance characteristics determined by [facility]'s [facility] [place]. This test has been authorized by FDA under an Emergency Use Authorization (EUA). This test has been validated in accordance with the FDA's Guidance Document Policy for Diagnostics Testing in Laboratories Certified to Perform High Complexity Testing under CLIA prior to Emergency use Authorization for Coronavirus Disease 2019 during the Public Health Emergency issued on June 24, 2019. Coronavirus 2019on 0 COVID 19 Source VASCULAR SURGEON Normal [facility] Comment on above: Result Comment: UPPE R Corrected on 03/10 AT 0407: Previously reported as U RESPIRATORY Corrected on 03/10 AT 0407: Previously reported as U TRACT SWAB Corrected on 03/10 AT 0407: Previously reported as U Laboratory - Microbiology an d Antimicrobial susceptibilityon 02-25-2012 Bacteria identified # 2 Cx Nom (Unsp spec) SEE NOTE Normal [employer] [employer], [employer]. Bacteria identified Cx Nom (Unsp spec) SEE NOTE Normal [facility]. S. pyogenes Ag EIA Ql (Throat) Negative Normal [facility] [employer]. Laboratory - Specimen inform ationon 02-25-2012 Specimen source Nom (Unsp spec) RESPIRATORY-THROAT Normal [facility] [employer]. No Panel Informationon 02-24 MONOSPOT TEST (IN HOUSE) Negative Normal [facility] [employer]. Laboratory - Microbiology an d Antimicrobial susceptibilityon 05-08-2010 FLUAV Ag IA Ql (Throat) Positive Abnormal [facility] [employer]. Vital Signs Date Time Vital Sign Value Performing Clinician Facility 04-13-2023 14:41-0500 Body height 161.29 cm Barb Mak MA [facility]. 04-13-2023 14:41-0500 Body mass index (BMI) [Ratio] 27.72 kg/m2 Barb Mak MA [facility] [employer], [employer]. 04-13-2023 14:41-0500 Body surface area Derived from formula 1.76 m2 Barb Mak MA [employer] [employer]. 04-13-2023 14:41-0500 Body weight 72.12 kg [facility] [employer]. 04-13-2023 14:41-0500 Diastolic blood pressure 83 mm[Hg] Barb [facility].; [employer]. Comment on above: Patient Position: Sitting; Cuff Location : Left Arm; Cuff Size: Standard 04-13-2023 14:41-0500 Heart rate 86 /min [facility] [employer]. Comment on above: Pattern: Regular 04-13-2023 14:41-0500 Systolic blood pressure 121 mm[Hg] [facility] [employer]. Comment on above: Patient Position: Sitting; Cuff Location : Left Arm; Cuff Size: Standard 02-23-2022 15:57-0400 Body height 161.29 cm Marysol Sharma [facility] [employer]. 02-23-2022 15:57-0400 Body mass index (BMI) [Ratio] 28.6 kg/m2 Marysol [facility]arma [facility].; [employer], [employer]. 02-23-2022 15:57-0400 Body surface area Derived from formula 1.79 m2 Marysol Sharma [facility].; [employer], [employer]. 02-23-2022 15:57-0400 Body weight 74.39 kg Marysol Sharma [facility].; [employer]. 02-23-2022 15:57-0400 Diastolic blood pressure 61 mm[Hg] Marysol [facility]arma [facility].; [employer]. Comment on above: Patient Position: Sitting; Cuff Location : Left Arm; Cuff Size: Standard 02-23-2022 15:57-0400 Heart rate 94 /min Marysol Sharma [facility].; [employer]. Comment on above: Pattern: Regular 02-23-2022 15:57-0400 Systolic blood pressure 114 mm[Hg] Marysol Sharma [facility].; [employer]. Comment on above: Patient Position: Sitting; Cuff Location : Left Arm; Cuff Size: Standard 12-15-2021 11:38-0400 Body height 161.[address] [facility], [facility].; [employer] [facility] 12-15-2021 11:38-0400 Body mass index (BMI) [Ratio] 28.94 kg/m2 Eusebia Mackenzie Akanksha [facility] [employer] [facility]. 12-15-2021 11:38-0400 Body surface area Derived from formula 1.[address] [facility], [facility].; [employer] [facility] 12-15-2021 11:38-0400 Body temperature 98.7 [degF] Eusebia Mackenzie Akanksha [facility], [facility].; [employer]. Comment on above: Method: Tympanic 12-15-2021 11:38-0400 Body weight 75.[address] [facility], [facility].; [employer]. 12-15-2021 11:38-0400 Diastolic blood pressure 70 mm[Hg] Eusebia Vale [facility], [facility].; [employer]. Comment on above: Patient Position: Sitting; Cuff Location : Left Arm; Cuff Size: Standard 12-15-2021 11:38-0400 Heart rate 66 /min Eusebia Vale [facility], [facility].; [employer]. Comment on above: Pattern: Regular 12-15-2021 11:38-0400 Systolic blood pressure 106 mm[Hg] [facility]ebia [facility].; [employer]. Comment on above: Patient Position: Sitting; Cuff Location : Left Arm; Cuff Size: Standard 08-17-2014 10:54-0400 Body height 161.29 cm Becky Canela COMMUNITY LIAISON OFFICER [facility] [employer]. 08-17-2014 10:54-0400 Body mass index (BMI) [Ratio] 25.63 kg/m2 [facility].; [employer] [facility]. 08-17-2014 10:54-0400 Body surface area Derived from formula 1.71 m2 Becky Benitezbrown VALENZUELA [employer] [facility].; [employer] [facility]. 08-17-2014 10:54-0400 Body temperature 97.8 [degF] Becky Benitezbrown VALENZUELA [facility].; [employer]. Comment on above: Method: Tympanic 08-17-2014 10:54-0400 Body weight 66.68 kg Becky Benitezbrown VALENZUELA [employer] [facility].; [employer]. 08-17-2014 10:54-0400 Diastolic blood pressure 68 mm[Hg] Becky Benitezbrown VALENZUELA [employer] [facility].; [employer]. Comment on above: Patient Position: Sitting; Cuff Location : Left Arm; Cuff Size: Standard 08-17-2014 10:54-0400 Heart rate 94 /min Becky Rola VALENZUELA [employer] [facility].; [employer]. Comment on above: Pattern: Regular 08-17-2014 10:54-0400 Systolic blood pressure 119 mm[Hg] Becky Canela COMMUNITY LIAISON OFFICERUnm Children'S HospitalHunch [facility].; [employer]. Comment on above: Patient Position: Sitting; Cuff Location : Left Arm; Cuff Size: Standard 08-02-2012 14:53-0400 Body height 161.29 cm Jodi Bishop PA-C Work Phone: [employer] [employer]. 08-02-2012 14:53-0400 Body mass index (BMI) [Ratio] 24.41 kg/m2 Jodi Bishop PA-C Work Phone: [employer].; [employer]. 08-02-2012 14:53-0400 Body surface area Derived from formula 1.67 m2 Jodi Bishop PA-C Work Phone: [employer].; [employer]. 08-02-2012 14:53-0400 Body temperature 97.8 [degF] Jodi Bishop PA-C Work Phone: [facility] [employer] [employer]. Comment on above: Method: Tympanic 08-02-2012 14:53-0400 Body weight 63.5 kg Jodi Pedrazaer PA-C Work Phone: [facility] [employer] [employer]. 08-02-2012 14:53-0400 Diastolic blood pressure 73 mm[Hg] Jodi Pedrazaer PA-C Work Phone: [facility] [employer] [employer]. Comment on above: Patient Position: Sitting; Cuff Location : Left Arm; Cuff Size: Standard 08-02-2012 14:53-0400 Heart rate 78 /min Jodi Pedrazaer PA-C Work Phone: [facility]; [employer]. Comment on above: Pattern: Regular 08-02-2012 14:53-0400 Systolic blood pressure 122 mm[Hg] Jodi Pedrazaer PA-C Work Phone: [facility]; [employer]. Comment on above: Patient Position: Sitting; Cuff Location : Left Arm; Cuff Size: Standard 02-25-2012 18:22-0400 Body height 161.29 cm [employer]horro [employer]re Work Phone: [facility] [employer]. 02-25-2012 18:22-0400 Body mass index (BMI) [Ratio] 24.58 kg/m2 Jolene [employer] [facility] Work Phone: [facility] [employer] [employer]. 02-25-2012 18:22-0400 Body surface area Derived from formula 1.68 m2 Jolene [employer] [facility] Work Phone: [facility] [employer] [employer]. 02-25-2012 18:22-0400 Body weight 63.96 kg [facility] Work Phone: [employer]. 02-25-2012 18:22-0400 Diastolic blood pressure 65 mm[Hg] Jolene Gonzales LPN Work Phone: [employer] [employer]. Comment on above: Patient Position: Sitting; Cuff Location : Left Arm; Cuff Size: Standard 02-25-2012 18:22-0400 Heart rate 58 /min Jolene Gonzales LPN Work Phone: [facility] [employer] [employer]. Comment on above: Pattern: Regular 02-25-2012 18:22-0400 Systolic blood pressure 118 mm[Hg] Jolene Gonzales COMMUNITY LIAISON OFFICER Work Phone: [employer] [employer]. Comment on above: Patient Position: Sitting; Cuff Location : Left Arm; Cuff Size: Standard 05-08-2010 17:23-0500 Body height 161.29 cm Jodi Bishop PA-C Work Phone: [employer] [employer]. 05-08-2010 17:23-0500 Body mass index (BMI) [Ratio] 23.89 kg/m2 Jodi Bishop PA-C Work Phone: [facility] [employer] [employer]. 05-08-2010 17:23-0500 Body surface area Derived from formula 1.66 m2 Jodi Bishop PA-C Work Phone: [facility]; [employer]. 05-08-2010 17:23-0500 Body temperature 98 [degF] Jodi Bishop PA-C Work Phone: [facility] [employer]. Comment on above: Method: Tympanic 05-08-2010 17:23-0500 Body weight 62.14 kg Jodi Bishop PA-C Work Phone: [facility] [employer]. 05-08-2010 17:23-0500 Diastolic blood pressure 81 mm[Hg] Jodi Bishop PA-C Work Phone: [employer]; [facility]. Comment on above: Patient Position: Sitting; Cuff Location : Left Arm; Cuff Size: Standard 05-08-2010 17:23-0500 Heart rate 95 /min Jodi Bishop PA-C Work Phone: [employer] [employer]. Comment on above: Pattern: Regular 05-08-2010 17:23-0500 Inhaled oxygen concentration 20 % Jodi Bishop PA-C Work Phone: [employer] [employer]. Comment on above: Room air 05-08-2010 17:23-0500 Inhaled oxygen concentration 21 % Jodi Bishop PA-C Work Phone: [facility]; [facility] [employer]. Comment on above: Room air 05-08-2010 17:23-0500 SaO2% (BldA) [Mass fraction] 98 % Jodi Bishop PA-C Work Phone: [facility]; [facility]. 05-08-2010 17:23-0500 Systolic blood pressure 124 mm[Hg] Jodi Bishop PA-C Work Phone: [facility]; [facility] [employer]. Comment on above: Patient Position: Sitting; Cuff Location : Left Arm; Cuff Size: Standard Encounters Encounter Date Encounter Type Care Provider Facility Start: 07-29-2023 End: 07-29-2023 Medication Jodi Bishop PA-C Work Phone: [facility] Start: 04-13-2023 End: 04-13-2023 Office outpatient visit 25 minutes Jodi Bishop PA-C Work Phone: [facility] Start: 02-11-2023 End: 02-11-2023 Telephone follow-up Jodi Bishop PA-C Work Phone: [facility] Start: 02-05-2023 End: 02-05-2023 [facility] Start: 03-24-2022 End: 03-24-2022 Telephone follow-up Jodi Bishop PA-C Work Phone: [facility] Start: 03-21-2022 End: 03-21-2022 Emergency department patient visit JODI BISHOP [facility] Start: 02-23-2022 End: 02-23-2022 Office outpatient visit 15 minutes Jodi Bishop PA-C Work Phone: [facility] Start: 12-15-2021 End: 12-15-2021 Patient encounter procedure Jodi Bishop PA-C Work Phone: [facility] Start: 03-12-2021 End: 03-13-2021 Medication Jodi Bishop PA-C Work Phone: [facility] Start: 08-17-2014 End: 08-17-2014 Patient encounter procedure Jodi Bishop PA-C Work Phone: [facility] Start: 08-02-2012 End: 08-02-2012 Patient encounter procedure Jodi Bishop PA-C Work Phone: [facility] Start: 02-29-2012 End: 02-29-2012 Medication Jodi Bishop PA-C Work Phone: [facility] Start: 02-25-2012 End: 02-25-2012 Patient encounter procedure Jodi FREITASC Work Phone: [facility] Start: 05-08-2010 End: 05-08-2010 Patient encounter procedure Jodi NOBLES-C Work Phone: [facility] Procedures Date Procedure Procedure Detail Performing Clinician Start: 04-13-2023 End: 04-13-2023 No Known Past Surgical History Barb Mak MA Start: 02-05-2023 Urinalysis JODI YI Comment on above: Result Comment: URIN ALYSIS Performed By: #### [id number] #### [facility],[address] [place], [place] [id number] Start: 08-16-2020 Antibody screen Comment on above: Performed By: #### T SPN ####[facility] [place], [place] [phone] Immunizations Immunization Date Immunization Notes Care Provider Judah hernandez 11-08-2012 tetanus toxoid, redu sathish diphtheria toxoid, and acellular pertussis vaccine, adsorbed Jodi Bishop PA-C Work Phone: [employer]; [facility] Payers Date Payer Category Payer Unknown [id number] 1985 Unknown [id number] Unknown [id number] Unknown [employer] Social History Date Type Detail Facility Tobacco Use Tobacco Use [employer]. Female [employer] [employer]. Work Phone: Tobacco smoking consumption unknown [facility]; [facility] Work Phone: Clinical Notes 07-15-2020 to 06-19-2021 Note Date & Type Note Facility 06-19-2021 Note HNO ID: [id number] Author: Claire Reynoso MD Service: ? Author Type: Physician Type: Progress Notes Filed: 06/19/2021 4:02 PM Note Text: Meat Trimmer offered: Patient declines. Erasmo Sparks is a 35 year old female who presents for concerns regarding heavy menses. Patient delivered spontaneous vaginal delivery 02/18/2021. Has not followed up for her visit. Patient states had menses in March skipped April and then started 2 days ago. Patient states yesterday her bleeding was significantly heavier than what she is used to. She states she was soaking a pad approximately every 2 hours. Patient states that she also passed some tissue and took a picture of it. Patient states today bleeding is moderate flow. Patient is not currently on anything for control. Patient states she took a home test yesterday and it was negative. Patient is interested in control that will not affect her milk supply. Patient states since going back to work her milk supply has decreased some. Patient denies any chest pain shortness of breath or dizziness at the current time. Patient states she does get some dizzy spells when she is pumping. Patient attributes the dizzy spells to lack of calories. Patient states she is staying hydrated throughout the day. She is trying to increase her calorie count. OB History T1 L1 SAB0 IAB0 Ectopic0 Multiple0 Live Births1 [employer] History LMP: 06/17/2021, Age at Menarche: Age at First : Age at Menopause: [employer] History Comments: Sexual Activity: Yes; Male Contraception: No contraception data on record PAST MEDICAL HISTORY Diagnosis Date - anxiety - Dysmenorrhea - Dyspareunia - Female infertility - Mononucleosis 04/26/2002 - Psoriasis PAST SURGICAL HISTORY Procedure Laterality Date - ARTIFICIAL INSEMINATION INTRA-CERVICAL - HYSTEROSCOPY, DIAGNOSTIC (SEPARATE - PAST SURGICAL HISTORY OF 01/24/2009 wisdom teeth extraction FAMILY HISTORY Problem Relation Age of Onset - Hyperlipidemia Mother - other (anemia) Mother - Diabetes Paternal Grandmother - other (Lung Cancer) Maternal Grandmother Smoker, - Diabetes Paternal Grandfather - Neuropathy Paternal Grandfather - other (Heart problems) Paternal Grandfather - No Known Problems Father - other (cirrhosis of liver-ETOH) Brother - Diabetes Maternal Grandfather Social History Tobacco Use - Smoking status: Former Smoker Years: 11.00 Types: Cigarettes Quit date: 09/11/2019 Years since quittin.7 - Smokeless tobacco: Never Used - Tobacco comment: occasional cigarette and was counseled Smokes 1 cigarette once a month Vaping Use - Vaping Use: Never used Substance Use Topics - Alcohol use: Not Currently Comment: every other weekend-3 - Drug use: No Current Outpatient Medications Medication Sig - Hrmyzzno-Fy-Tvd-Fe-FA ( VITAMIN) tab Take 1 tablet by mouth. - acetaminophen (TYLENOL) 325 mg tablet Take 650 mg by mouth every 6 hours as needed. - MAGNESIUM ORAL Take by mouth. (Patient not taking: Reported on 06/19/2021 ) No current facility-administered medications for this visit. Allergies As of Date: 06/19/2021 Allergen Noted Reaction VICODIN [HYDROCODONE-ACETAMINOPHE*07/14/2011 Vomiting Fully Assessed 06/19/2021 REVIEW OF SYSTEMS Abdomen: no pain Bladder: no dysuria .. Expanded ROS: GENERAL: Negative for fever Allergies and current medication updated:Yes EXAM: BP 114/70 Wt 169 lb (76.7kg) LMP 06/17/2021 GENERAL: pleasant, female in no apparent distress HEENT: Normocephalic and atraumatic NECK: full range of motion DERMATOLOGY: Normal, without lesions, non-icteric and non-hirsute BREAST: deferred ABDOMEN: Deferred PELVIC: deferred BIMANUAL: deferred NEURO: alert and oriented x3,exam grossly non-focal EXTREMITIES: normal ASSESSMENT AND PLAN: Encounter Diagnosis ICD-10-CM 1. Excessive bleeding in premenopausal period N92.4 2. Lactating mother Z39.1 3. Discussed irregular and heavier cycles after delivery. We discussed that this can continue 6 to 12 months. Discussed options for heavy menses including progesterone only pills or Mirena IUD. Patient declines Mirena IUD at this time. Patient is interested in trying the progesterone only pills. No contraindication to start. We discussed proper use of them. We discussed timeframe for taking them. 4, patient had a picture of the tissue that she passed. Appears to be an endometrial cast. Reassurance given. 5.call if concerns or stopped breast feeding and would like to switch to combined ocps. I spent a total of 20 minutes on the date of the service which included preparing to see the patient, [id number] patient care, completing clinical documentation, obtaining and/or reviewing separately obtained history, performing a medically appropriate examination, counseling and educati (more content not included)... [facility] 02-20-2021 Note HNO ID: [id number] Author: Camilla Bella RN Service: ? Author Type: ? Type: Progress Notes Filed: 02/20/2021 4:12 PM Note Text: Patient delivered via by Dr. Moore on 02/18/21 at [facility]. See OB history. Camilla Bella RN [facility] 02-17-2021 Note HNO ID: [id number] Author: Ellie Pitt APRN.CNM Service: ? Author Type: Answering Service Operator Type: Progress Notes Filed: 02/17/2021 6:54 PM Note Text: NST SUMMARY PROVIDER ASSESSMENT AND INTERPRETATION Erasmo Sparks is a 35 year old female, , who is at 39w5d with an CASSIDY of 02/19/2021, by Last Menstrual Period dating method. Indications for NST: Decreased Movement Baseline: 125 Variability: Moderate Accelerations: Present 15 X 15 Decelerations: None Contractions: TOCO: Irregular Interpretation: Reactive SIGNATURE: Ellie Pitt APRN.[facility] 01-15-2021 Note HNO ID: [id number] Author: Carolee Moser MD Service: ? Author Type: ? Type: Progress Notes Filed: 01/15/2021 3:00 PM Note Text: NST SUMMARY PROVIDER ASSESSMENT AND INTERPRETATION Erasmo Sparks is a 35 year old female, , who is at 35w0d with an CASSIDY of 02/19/2021, by Last Menstrual Period dating method. Indications for NST: Decreased Movement Baseline: 120 Variability: Moderate Accelerations: Present 15 X 15 Decelerations: None Contractions: TOCO: None Interpretation: Category I and Reactive SIGNATURE: Carolee Moser MD [facility] 11-22-2020 Note HNO ID: [id number] Author: Arturo Green MD Service: ? Author Type: Physician Type: Progress Notes Filed: 11/22/2020 4:57 PM Note Text: NST SUMMARY PROVIDER ASSESSMENT AND INTERPRETATION Indications for NST: Decreased Movement Baseline: 130 Variability: Moderate Accelerations: Present 15 X 15 Decelerations: None Interpretation: Reactive SIGNATURE: Arturo Green DO [facility] 11-22-2020 Note HNO ID: [id number] Author: Krista Rasheed MA Service: ? Author Type: Uniform Patrol Police Officer Type: Progress Notes Filed: 11/22/2020 4:57 PM Note Text: Patient identified by name and date of . Erasmo Sparks presents today for a vaccination of Tdap. Patient denies an allergy to latex: yes Patient denies a severe (life-threatening) allergy to a previous dose of Tdap, DTP, DTaP, DT or Td vaccine. Yes Patient denies history of epilepsy or neurological problems: Yes Patient is afebrile and denies being moderately or severely ill: Yes Patient denies history of Guillain-[place] Syndrome (a severe paralytic illness): Yes Tdap Adacel injection was given without incident. See immunizations for details of immunizations administered today. VIS sheet provided: Yes Provider Arturo Green DO was present in office at time of injection. Krista Rasheed MA [facility] 10-07-2020 Note HNO ID: [id number] Author: Claire Reynoso MD Service: ? Author Type: Physician Type: Progress Notes Filed: 10/07/2020 4:40 PM Note Text: Erasmo Sparks is a 35 year old female who presents today for a vulvar lesion excision Indication: new vulvar lesion. UNIVERSAL PROTOCOL / SAFETY CHECKLIST Procedure to be performed: removal vulvar skin tag Sign in Communication: Completed Time Out: Team Confirms the Correct Patient, Correct Procedure, Correct Site and Site Marking, Correct Position (if applicable), Prep and Dry Time (if applicable). Time: Affirmation of Time Out: YES Sign Out Discussion: Completed Claire Wilde MD PROCEDURE NOTE: GROSS LESIONS: Yes, vulvar condyloma EXCISION: Area was cleansed with betadine and anesthetized with 2mL 1% lidocaine with 1:100,000 epi. Lesion cut at base with sterile scissor. HEMOSTASIS: Obtained with silver nitrate Procedure Summary: Patient tolerated procedure well. ASSESSMENT: Vulvar condyloma PLAN: Specimens labeled and sent to Pathology. Will notify patient of results in 1-2 weeks. Claire Wilde MD [facility] 10-04-2020 Note HNO ID: [id number] Author: Felipe Treviño MD Service: ? Author Type: Physician Type: Progress Notes Filed: 10/04/2020 4:13 PM Note Text: Please see ultrasound report for details of this visit. Felipe Treviño M.D. [facility] 08-16-2020 Note HNO ID: [id number] Author: Felipe Treviño Service: ? Author Type: Physician Type: Progress Notes Filed: 08/16/2020 4:21 PM Note Text: Please see ultrasound report for details of this visit. Felipe Treviño M.D. [facility] 08-16-2020 Note HNO ID: [id number] Author: Camilla Bella RN Service: ? Author Type: ? Type: Progress Notes Filed: 08/16/2020 4:51 PM Note Text: Patient here for First Trimester Screening. See ultrasound report for details. Options for genetic screening and diagnosis discussed with the patient. Patient opts for first trimester screening and the sequential screening protocol. Limitations of screening tests discussed with the patient. Arturo Green MD [facility] 07-15-2020 Note HNO ID: [id number] Author: Arturo Green Service: ? Author Type: Physician Type: Progress Notes Filed: 07/15/2020 5:24 PM Note Text: INITIAL OB ASSESSMENT OB Provider: Arturo Green DO HPI: Erasmo Sparks is a 34 year old female here to establish Obstetrical Care. Patient's last menstrual period was 05/15/2020. from OB Dating Form. Complaints: nausea and vomiting was planned. Obstetric History T0 L0 SAB0 TAB0 Ectopic0 Multiple0 Live Births0 Prior : never History of 4th degree laceration: No Patient's Risk Screening for delivery: History of abnormal pap: No Prior treatment for cervical dysplasia: none. History of STDs: None Tobacco use: No Caffeine use: Yes, coffee Drug use: No Alcohol use: No Multivitamin with Folic acid: Yes Lutheran or heritage: No Would refuse blood transfusion if medically necessary: No BMI 28.83 kg/(m2) Patient BMI over 30? No Marital Status: Partner: Name: Lalito Gender: male History of STDs: None PAST MEDICAL HISTORY Diagnosis Date - anxiety - Dysmenorrhea - Dyspareunia - Female infertility - Mononucleosis 04/26/2002 - Psoriasis PAST SURGICAL HISTORY Procedure Laterality Date - ARTIFICIAL INSEMINATION INTRA-CERVICAL - HYSTEROSCOPY, DIAGNOSTIC (SEPARATE - PAST SURGICAL HISTORY OF 01/24/2009 wisdom teeth extraction Current Outpatient Medications on File Prior to Visit Medication Sig - Frmeztez-Fn-Vle-Fe-FA ( VITAMIN) tab Take 1 tablet by mouth. - letrozole (FEMARA) 2.5 mg tablet Take 1 tablet by mouth once daily for 5 days. Start on cycle day 3. No current facility-administered medications on file prior to visit. Review of Systems: GENERAL: Negative for: Fever or Chills HEENT: Negative for: Headache, Impaired Vision, Ringing in Ears, Nosebleeds NECK: Negative for: Swelling, Pain, Stiffness RESPIRATORY: Negative for: Cough, Shortness of breath, Wheezing GASTROINTESTINAL: Negative for: Heartburn, Constipation, Diarrhea, Blood in stool, Vomiting MUSCULOSKELETAL: Negative for: Muscle or joint pain, stiffness, Joint swelling NEUROLOGIC/PSYCHIATRIC: Negative for: Weakness, Paralysis, Numbness, Tingling, Tremor, Anxiety, Depression, Memory loss SKIN: Negative for: Rash, Itching GENITOURINARY: Negative for: vaginal itching, vaginal discharge, hematuria or dysuria PHYSICAL EXAM: BP 120/80 Ht 5' 2 (1.58m) Wt 157 lb 9.6 oz (71.5kg) LMP 05/15/2020 BMI 28.82 kg/(m2). GENERAL: pleasant female in no apparent distress DERMATOLOGY: Normal, without lesions, non-icteric and non-hirsute NECK: Supple, full range of motion, no adenopathy and thyroid normal CHEST: Normal inspiratory effort BREAST: soft, non-tender, symmetric, no dominant mass, normal nipple-areolar complex, no lymphadenopathy and no nipple discharge ABDOMEN: soft, non-tender and no masses NEURO: exam grossly non-focal PELVIS: External genitalia normal without lesions. Perineal body intact. No vaginal or cervical lesions. Cervix closed. Uterus 8 week size. No adnexal masses or tenderness. Clinical Pelvimetry: Pelvimetry clinically assessed as adequate Limited OB ultrasound exam: Twin - 1st twin measuring 8w6d with +FHT, 2nd twin measuring 7w0d with no cardiac activity OB Risk Screening: Completed, no positive findings documented. SBIRT Erasmo Brando Bridger was given the 4P's screening tool. Erasmo answered as follows: OB Opioid Screening - Last Recorded (since 10/19/2019) Did any of your parents have a problem with alcohol or other drug use? (!) Yes Mother-drug use Does your partner have a problem with alcohol or other drug use? (!) Yes In the past, have you had difficulties in your life because of alcohol or other drugs, including prescription medications? No In the past month have you drunk any alcohol or used other drugs? No Are you taking medication for pain during the either prescribed or not? No Based on the screen and further questions, she is considered at Low risk due to:No past or current use. Positive reinforcement of current behavior. Plan to rescreen early third trimester. Arturo Green DO ASSESSMENT: 34 year old at 8 wks gestational age PLAN: 1) Patient oriented to practice. Discussed nutrition, folic acid supplementation, dietary guidelines, exercise, smoking, alcohol, caffeine, and drug use. Discussed routine OB labs including STD/HIV. Discussed aneuploidy screening options including serum screening and nuchal translucency. NT ordered. Signing records release from carrier screening and counseling with genetics. Will message MFM regarding carrier screening and ordering NIPT. Patient reasonable tearful regarding demise of one twin. Scan performed with progress man as well to confirm. Follow up in 4 weeks or sooner prn. Arturo Green DO [facility] Summary Purpose Family History Anxiety Disorder Status:Active Diabetes Mellitus Type I Status:Active Lung Cancer Status:Active Anxiety Disorder Status:Active Diabetes Mellitus Type I Status:Active Lung Cancer Status:Active Anxiety Disorder Status:Active Diabetes Mellitus Type I Status:Active Lung Cancer Status:Active Anxiety Disorder Status:Active Diabetes Mellitus Type I Status:Active Lung Cancer Status:Active Anxiety Disorder Status:Active Diabetes Mellitus Type I Status:Active Lung Cancer Status:Active Anxiety Disorder Status:Active Diabetes Mellitus Type I Status:Active Lung Cancer Status:Active Advance Directives No Advanced Directives Records FoundNo Advanced Directives Records FoundNo Advanced Directives Records Found Additional Source Comments INFORMATION SOURCE (unrecogn ized section and content) DATE CREATED AUTHOR 03/16/2020 [facility] DATE CREATED AUTHOR AUTHOR'S ORGANIZ ATION 07/15/2021 [facility] DATE CREATED AUTHOR AUTHOR'S ORGANIZ ATION 02/07/2023 [facility] FOR RECORDS PERTAINING TO PATIENTS WHO ARE OR HAVE BEEN ENROLLED IN A CHEMICAL DEPENDENCY/SUBSTANCEABUSE PROGRAM, SOME INFORMATION MAY BE OMITTED. This clinical summary was aggregated from multiple sources. Caution should be exercised in using it in the provision of clinical care. This summary normalizes information from multiple sources, and as a consequence, information in this document may materially change the coding, format and clinical context of patient data. In addition, data may be omitted in some cases. CLINICAL DECISIONS SHOULD BE BASED ON THE PRIMARY CLINICAL RECORDS. [employer] provides no warranty or guarantee of the accuracy or completeness of information in this document.
== END | disposition home or self-care (01) ==
LOC: US 15:39
PROVIDERS: PCP Physician Assistant; Referring Provider Advanced Practice Midwife; Visit Provider Advanced Practice Midwife
DX: O09.522 Supervision of elderly multigravida, second trimester (principal); Z3A.00 Weeks of gestation of pregnancy not specified
CPT/HCPCS: 76816

== ENCOUNTER → 2024-03-16 | Outpatient (CLI) | payer OTHER, SELFPAY | END | disposition home or self-care (01) | LOC: LABSPEC 16:56 | PROVIDERS: PCP Physician Assistant; Referring Provider Obstetrics & Gynecology; Visit Provider Obstetrics & Gynecology | DX: O09.91 Supervision of high risk pregnancy, unspecified, first trimester (principal); Z3A.00 Weeks of gestation of pregnancy not specified | CPT/HCPCS: 87081 ==

== ENCOUNTER → 2024-03-17 | Outpatient (CLI) | payer OTHER, SELFPAY | END | disposition home or self-care (01) | LOC: US 11:56 | PROVIDERS: PCP Physician Assistant; Referring Provider Advanced Practice Midwife; Visit Provider Advanced Practice Midwife | DX: Z00.00 Encounter for general adult medical examination without abnormal findings (principal) ==

== ENCOUNTER → 2024-03-21 | Outpatient (CLI) | payer OTHER, SELFPAY ==
--- NOTE | 2024-03-21 15:57 | US_ITS ---
STUDY: SECOND AND THIRD TRIMESTER OBSTETRICAL ULTRASOUND REASON FOR EXAM: Female, 38 years old 36 week growth US LMP: TECHNIQUE: Transabdominal TECHNICAL QUALITY: Adequate. PRIOR ULTRASOUND: February 18, 2024 FINDINGS: There is a single intrauterine fetus. The fetus is in a cephalic presentation. There is demonstrated cardiac activity with a heart rate of 155 bpm. There is a normal amniotic fluid volume. The largest amniotic fluid pocket measures 4.3 cm. The amniotic fluid index (OUSMANE) is 7.8 cm. The placenta is posterior and not low-lying There are Grade 2 placental changes. The cervix was not well visualized. The bilateral adnexal regions are normal. BIOMETRY: BPD: 9 cm: 36 weeks, 2 days: 40% HC: 32.6 cm 37 weeks, 0 day: 20% AC: 34.9 cm: 38 weeks, 5 days: 93% FL: 7.3 cm: 37 weeks, 1 days: 47% CI: 0.786 FL/BPD: 0.809 FL/HC: 0.222 FL/AC: .208 HC/AC: 0.9 age by current US: 37 weeks, 3 days. CASSIDY by current US: April 08, 2024. Estimated weight: 3385 grams, +/- 508 grams, 0.77 %. Age by LMP: 37 weeks, 2 days. CASSIDY by LMP: April 09, 2024. ANATOMY: Not studied at this time. US/OB Limited With Biometrics IMPRESSION: Viable intrauterine gestation approximately 37-38 weeks gestational age No significant abnormality Electronically Signed: Reinier Rivers MD at 16:18 EST ,
== END | disposition home or self-care (01) ==
PROVIDERS: PCP Physician Assistant; Referring Provider Advanced Practice Midwife; Visit Provider Advanced Practice Midwife
DX: O09.523 Supervision of elderly multigravida, third trimester (principal); Z3A.36 36 weeks gestation of pregnancy
CPT/HCPCS: 76816

== ENCOUNTER 2024-04-02 22:01 | Inpatient (IN) | payer OTHER, SELFPAY ==
[2024-04-02] VITALS (22 sets, daily range): BP systolic 102–142; BP diastolic 51–78; PULSE 81–96; RESP 16–18; TEMP 36.9–37.3; O2SAT 86–100; BMI 34.2
[2024-04-02] MEDS: Lactated Ringers 1,000 ML 50 ML IV (22:15)
[2024-04-02] MEDS: Lactated Ringers 1,000 ML 999 ML IV (22:15)
[2024-04-02 22:25] LABS: Absolute Lymphocyte Count 1.52 X10^3/uL (0.83-4.51); Absolute Neutrophil Count 8.1 X10^3/uL (2.0-7.7); Basophil# 0.03 X10^3/uL; Basophil% 0.3 % (0-1); Eosinophil# 0.07 X10^3/uL; Eosinophils% 0.7 % (0-5); Hematocrit 39.2 % (37-47); Hemoglobin 13.2 g/dL (12.0-15.0); Lymphocyte # 1.52 X10^3/ul (0.83-4.51); Lymphocyte % 14.6 % (19-41); Mean Corp Hgb Conc 33.7 g/dL (32-36); Mean Corpuscular Volume 83.1 fL (81-99); Mean Platelet Vol. 9.5 fl (6.2-12.0); Monocyte# 0.66 X10^3/uL; Monocyte% 6.3 % (0-10); NRBC Flagged by Analyzer 0 % (0-5); Neutrophil # 8.07 X10^3/uL (2.7-7.7); Neutrophil % 77.5 % (47-70); Platelet Count 222 K/mm3 (150-450); RBC Distribution Width SD 38.7 fl (35.1-43.9); Red Blood Count 4.72 M/mm3 (4.2-5.4); White Blood Count 10.4 K/mm3 (4.4-11.0)
[2024-04-02 23:05] LABS: Syphilis Antibodies Non-reactive
[2024-04-02] MEDS: fentaNYL-bupivacaine (epidural) 100 ML BAG EPIDURAL (23:26)
[2024-04-03] VITALS (75 sets, daily range): BP systolic 93–133; BP diastolic 50–76; PULSE 73–109; RESP 16–18; TEMP 36–37; O2SAT 80–100
--- NOTE | 2024-04-03 01:12 | HP.PCM.OB_ITS ---
HPI - General General Date of Admission: 04/02/24 Date of Service: 04/03/24 HPI Narrative ERASMO SPARKS, is a 38 F at 39.1 weeks who presents to unit in active labor. Maternal Data Information CASSIDY Calculator Estimated Delivery Date Method Current WG Current Estimate 04/09/24 LMP (Certain) 39w 1d Other Estimates 04/05/24 Ultrasound #1 39w 5d Final CASSIDY: 04/09/24 Final CASSIDY Source: US >20 weeks Gestational age: 39.1 weeks [facility] Medical History Mother currently breast-feeding Laceration, obstetrical, first degree (spontaneous vaginal delivery) Infertility Anxiety Autoimmune disease Leakage of amniotic fluid Decreased movement Home Medications ?Medication ?Instructions ?Recorded ?Last Taken ?Type hmakcnsk-oag-Bb-FA 1 mg 1 tab PO DAILY 01/29/21 01/09/24 22:45 History tablet 1 TAB citalopram 20 mg tablet (Celexa) 10 mg PO DAILY 01/10/24 01/09/24 22:45 History 10 mg breast pump #1 ea 03/16/24 Unknown Rx Allergy/AdvReac Type Severity Reaction Status Date / Time hydrocodone (From Vicodin) AdvReac Nausea Verified 04/02/24 21:36 Family History Grandmother Diabetes, Onset Age: 80 Grandmother Cancer, Onset Age: 70 Lung Surgical History History of surgery Social History adopted: No household members: spouse and children number of children: 1 current occupational status: employed current occupation: [employer] - [employer] current occupational exposures/hazards: No pets and animals: Yes pets and animals: farm animals history of recent travel: Yes details: [place] in June out of state: Yes out of country: No sexually active: Yes Smoking Status: Former smoker how long ago did patient quit smoking: Summer 2019 alcohol intake: never details: Not while substance use type: does not use well-balanced diet: daily or most days caffeine: Yes Type: coffee eating out: rarely or never during the past year weight has: other details: Weight from previous what type of physical activity do you participate in: walking frequency: 5-6 times per week duration: 30-45 minutes/day seatbelt use: always do you feel safe at home: Yes additional social history: : Lalito - [employer] Work[employer] History 2 Elective abortions Hx Para 1 Spontaneous abortions Hx # Term Pregnancies Ectopic pregnancies Hx # Pregnancies Multiple births # of living children 1 Past Pregnancies Del. Date Name GA/Weeks Outcome Route Bth Weight Gen Labor Lgth Anesthesia Del Locatn Provider FOB 02/18/21 Naheed 40 live - full term 7lbs 4oz Female e pidural [facility] - Dr Franck Starkey Delivery Date: 02/18/21 Last Updated by: Tangela Winchester RN Vanishing Twin Syndrome - twin lost at 7weeks ... At delivery mom&baby with fever - IV ABX given Visit Details Expected Delivery Route/Plan Labor Preferences- CB/BF classes: [] labor support person: [] labor intervention preferences: [] pain management options preferred: [] cut cord/dad catch: [] : [] PP control planned: [] discussed possible routes of delivery and associated risks: [] special requests: [] Plans Covid status: [] Flu vaccine: [] Tdap vaccine: [] Rhogam: [] LARC form signed: [] Problem list reviewed and updated with the most current plan of care details and appropriate orders placed. Relevant counseling for the gestational age provided. Continue routine care and follow up unless otherwise noted in visit notes/problem list details OB Flowsheet Initial Weight: Not Recorded Date -?-?-?-?-?-?-?-?-?-?-?-?- EGA Weight BP Urine Prot -?-?-?-?-?-?-?-?-?-?-?-?- Glucose FHR FuHt Pres Dilation -?-?-?-?-?-?-?-?-?-?-?-?- Effaced St Visit Note 08/31/23 -?-?-?-?-?-?-?-?-?-?-?-?- 8w 2d 161 lb 110/66 -?-?-?-?-?-?-?-?-?-?-?-?- 185 -?-?-?-?-?-?-?-?-?-?-?-?- JV- CRL consiste nt with LMP. desires NIPT 09/29/23 -?-?-?-?-?-?-?-?--?-?-?-?- 12w 3d 163 lb 115/76 Negative -?-?-?-?-?-?-?-?-?-?-?-?- Negative 160 -?-?-?-?-?-?-?-?-?-?-?-?- SM- no vb lof cr amping discussed headaches 10/27/23 -?-?-?-?-?-?-?-?-?-?-?-?- 16w 3d 170 lb 2 oz 116/82 Nega tive -?-?-?-?-?-?-?-?-?-?-?-?- Negative 148 -?-?-?-?-?-?-?-?-?-?-?--?- MH-No VB. Headac hes have resolved. AFP today 11/24/23 -?-?-?-?-?-?-?-?-?-?-?-?- 20w 3d 177 lb 2 oz 101/67 Nega tive -?-?-?-?-?-?-?-?-?-?-?-?- Negative 140 20 -?-?-?-?-?-?-?-?-?-?-?-?- KW- no vb/crampi ng. good fm. magnesium recommended for MORALES and compression hose/Gatorade for episodes of dizziness. 12/22/23 -?-?-?-?-?-?-?-?-?-?-?-?- 24w 3d 179 lb 99/62 Trace -?-?-?-?-?-?-?-?-?-?-?-?- Negative 150 24 -?-?-?-?-?-?-?-?-?-?-?-?- KW- no vb/lof/ct x. good fm. doing well on celexa. 28 week labs discussed growth scan ordered. 01/21/24 -?-?-?-?-?-?-?-?-?-?-?-?- 28w 5d 181 lb 8 oz 109/58 Nega tive -?-?-?-?-?-?-?-?-?-?-?-?- Negative 156 28 -?-?-?-?-?-?-?-?-?-?-?-?- JV- having braxt on hick 9-10 pm. no further leaking or spotting. ptl precautions discussed. 02/04/24 -?-?-?-?-?-?-?-?-?-?-?-?- 30w 5d 184 lb 99/65 Negative -?-?-?-?-?-?-?-?-?-?-?-?- Negative 150 30 -?-?-?-?-?-?-?-?-?-?-?-?- SM- no vb lof g ood fm no regular ctx 02/16/24 -?-?-?-?-?-?-?-?-?-?-?-?- 32w 3d 186 lb 98/64 Negative -?-?-?-?-?-?-?-?-?-?-?-?- Negative 140 32 -?-?-?-?-?-?-?-?-?-?-?-?- KW- no vb/lof/ct x. good fm. growth US wednesday. LAR today 02/29/24 -?-?-?-?-?-?-?-?-?-?-?-?- 34w 2d 186 lb 4 oz 110/63 -?-?-?-?-?-?-?-?-?-?-?-?- 150 34 -?-?-?-?-?-?-?-?-?-?-?-?- mh-No VB, LOF. N o Reg CTX. Growth US at 36 wk 03/16/24 -?-?-?-?-?-?-?-?-?-?-?-?- 36w 4d 189 lb 6 oz 109/72 Nega tive -?-?-?-?-?-?-?-?-?-?-?-?- Negative 136 37 Cephalic 2 -?-?-?-?-?-?-?-?-?-?-?-?- 50 -2 ARIS naylor ng IOL Apr 03. gbs collected 03/21/24 -?-?-?-?-?-?-?-?-?-?-?-?- 37w 2d 189 lb 4 oz 110/76 Nega tive -?-?-?-?-?-?-?-?-?-?-?-?- Negative 153 37 Cephalic 2 -?-?-?-?-?-?-?-?-?-?-?-?- MH-No VB, LOF. G ood FM. Irreg CTX. Reviewed safe meds for cough/congestion. See PCP if fever/worsening sx. 03/28/24 -?-?-?-?-?-?-?-?-?-?-?-?- 38w 2d 191 lb 118/76 -?-?-?-?-?-?-?-?-?-?-?-?- 145 38 Cephalic 3 -?-?-?-?-?-?-?-?-?-?-?-?- 30 -3 KW- no vb/ lof/reg ctx. good fm. IOL set up for AMA NST FHR Rate Baby A Baseline: 135 Variability:: Moderate Accelerations:: 15 x 15 Decelerations:: None NST Reactive:: Yes FHR Category:: Category I Uterine Activity:: 2-3 minutes ROS Constitutional Constitutional: Denies change in weight, fatigue, fever(s), headache(s), poor appetite or weakness Eyes Eyes: Denies blurry vision, change in vision, floaters, seeing flashes or spots in vision ENT HEENT: Denies dizziness, headache(s), loss taste/smell or sore throat Cardiovascular Cardiovascular: Denies chest pain, dizziness, dyspnea, irregular heart rhythm, lightheadedness, palpitations or rapid heart rate Respiratory/Chest Respiratory/Chest: Denies change in mental status, chest tightness, cough, dyspnea or breast pain Gastrointestinal Gastrointestinal: Denies anorexia, chewing difficulty, constipation, diarrhea or weight changes Genitourinary Genitourinary: Denies difficulty urinating, dysuria, flank pain, genital pain, urinary frequency or urinary urgency Musculoskeletal Musculoskeletal: Denies back pain, difficulty walking, extremity pain, joint pain, muscle cramps or muscle weakness Integumentary Integumentary: Denies lesions or unusual bruising Neurologic Neurologic: Denies abnormal movements, abnormal speech, dizziness, numbness, seizure-like activity, syncope or weakness Psychiatric Psychiatric: Denies behavioral changes, change in appetite, confusion, depr ession, homicidal ideation, suicidal ideation or suicidal thoughts Endocrine Endocrinology: Denies excessive sweating, polydipsia or polyuria Hematologic/Lymphatic Hematologic/Lymphatic: Denies anemia Allergic/Immunologic Allergic/Immunologic: Denies itchy eyes, lip swelling, throat swelling, tongue swelling or wheezing Vital Signs Vital Signs Vital Signs: 04/02/24 21:42 04/02/24 21:42 04/02/24 21:42 Temperature Temperature Source Temporal Pulse Rate Respiratory Rate 16 Blood Pressure BP Systolic BP Diastolic Pulse Ox 97 04/02/24 21:42 04/02/24 21:51 04/02/24 21:51 Temperature 99.2 F H Temperature Source Pulse Rate 83 Respiratory Rate Blood Pressure 118/62 BP Systolic 118 BP Diastolic 62 Pulse Ox 04/02/24 22:32 04/02/24 22:32 04/02/24 23:10 Temperature Temperature Source Pulse Rate 81 89 Respiratory Rate Blood Pressure 142/74 H BP Systolic 142 BP Diastolic 74 Pulse Ox 04/02/24 23:10 04/02/24 23:15 04/02/24 23:15 Temperature Temperature Source Pulse Rate 87 Respiratory Rate Blood Pressure BP Systolic BP Diastolic Pulse Ox 100 100 04/02/24 23:17 04/02/24 23:17 04/02/24 23:17 Temperature Temperature Source Pulse Rate 88 Respiratory Rate 18 Blood Pressure 117/73 BP Systolic 117 BP Diastolic 73 Pulse Ox 04/02/24 23:20 04/02/24 23:20 04/02/24 23:22 Temperature Temperature Source Pulse Rate 88 Respiratory Rate Blood Pressure 117/75 BP Systolic 117 BP Diastolic 75 Pulse Ox 100 04/02/24 23:22 04/02/24 23:22 04/02/24 23:25 Temperature Temperature Source Pulse Rate 89 91 Respiratory Rate 18 Blood Pressure BP Systolic BP Diastolic Pulse Ox 04/02/24 23:25 04/02/24 23:27 04/02/24 23:27 Temperature Temperature Source Pulse Rate 93 Respiratory Rate Blood Pressure 114/68 BP Systolic 114 BP Diastolic 68 Pulse Ox 100 04/02/24 23:27 04/02/24 23:27 04/02/24 23:27 Temperature 98.4 F Temperature Source Temporal Pulse Rate Respiratory Rate 18 Blood Pressure BP Systolic BP Diastolic Pulse Ox 04/02/24 23:29 04/02/24 23:29 04/02/24 23:33 Temperature Temperature Source Pulse Rate 90 Respiratory Rate Blood Pressure 126/73 H BP Systolic 126 BP Diastolic 73 Pulse Ox 86 04/02/24 23:33 04/02/24 23:33 04/02/24 23:33 Temperature Temperature Source Pulse Rate 93 Respiratory Rate 16 Blood Pressure BP Systolic BP Diastolic Pulse Ox 98 04/02/24 23:37 04/02/24 23:37 04/02/24 23:37 Temperature Temperature Source Pulse Rate 95 Respiratory Rate 16 Blood Pressure 121/72 H BP Systolic 121 BP Diastolic 72 Pulse Ox 04/02/24 23:38 04/02/24 23:38 04/02/24 23:42 Temperature Temperature Source Pulse Rate 91 Respiratory Rate Blood Pressure 133/78 H BP Systolic 133 BP Diastolic 78 Pulse Ox 97 04/02/24 23:42 04/02/24 23:42 04/02/24 23:43 Temperature Temperature Source Pulse Rate 95 90 Respiratory Rate 16 Blood Pressure BP Systolic BP Diastolic Pulse Ox 04/02/24 23:43 04/02/24 23:47 04/02/24 23:47 Temperature Temperature Source Pulse Rate 90 Respiratory Rate Blood Pressure 126/76 H BP Systolic 126 BP Diastolic 76 Pulse Ox 98 04/02/24 23:47 04/02/24 23:48 04/02/24 23:48 Temperature Temperature Source Pulse Rate 96 Respiratory Rate 16 Blood Pressure BP Systolic BP Diastolic Pulse Ox 98 04/02/24 23:52 04/02/24 23:52 04/02/24 23:52 Temperature Temperature Source Pulse Rate 95 Respiratory Rate 16 Blood Pressure 133/71 H BP Systolic 133 BP Diastolic 71 Pulse Ox 04/02/24 23:53 04/02/24 23:53 04/02/24 23:57 Temperature Temperature Source Pulse Rate 82 Respiratory Rate Blood Pressure 102/51 L BP Systolic 102 BP Diastolic 51 Pulse Ox 98 04/02/24 23:57 04/02/24 23:57 04/02/24 23:58 Temperature Temperature Source Pulse Rate 90 88 Respiratory Rate 16 Blood Pressure BP Systolic BP Diastolic Pulse Ox 04/02/24 23:58 04/03/24 00:02 04/03/24 00:02 Temperature Temperature Source Pulse Rate 83 Respiratory Rate Blood Pressure 96/53 L BP Systolic 96 BP Diastolic 53 Pulse Ox 98 04/03/24 00:02 04/03/24 00:03 04/03/24 00:03 Temperature Temperature Source Pulse Rate 85 Respiratory Rate 16 Blood Pressure BP Systolic BP Diastolic Pulse Ox 98 04/03/24 00:07 04/03/24 00:07 04/03/24 00:07 Temperature Temperature Source Pulse Rate 83 Respiratory Rate 16 Blood Pressure 93/54 L BP Systolic 93 BP Diastolic 54 Pulse Ox 04/03/24 00:08 04/03/24 00:08 04/03/24 00:12 Temperature Temperature Source Pulse Rate 84 Respiratory Rate Blood Pressure 115/71 BP Systolic 115 BP Diastolic 71 Pulse Ox 98 04/03/24 00:12 04/03/24 00:12 04/03/24 00:13 Temperature Temperature Source Pulse Rate 85 76 Respiratory Rate 16 Blood Pressure BP Systolic BP Diastolic Pulse Ox 04/03/24 00:13 04/03/24 00:17 04/03/24 00:17 Temperature Temperature Source Pulse Rate 75 Respiratory Rate Blood Pressure 104/50 L BP Systolic 104 BP Diastolic 50 Pulse Ox 98 04/03/24 00:17 04/03/24 00:18 04/03/24 00:18 Temperature Temperature Source Pulse Rate 78 Respiratory Rate 16 Blood Pressure BP Systolic BP Diastolic Pulse Ox 98 04/03/24 00:23 04/03/24 00:23 04/03/24 00:23 Temperature Temperature Source Pulse Rate 78 Respiratory Rate Blood Pressure 107/60 BP Systolic 107 BP Diastolic 60 Pulse Ox 98 04/03/24 00:27 04/03/24 00:27 04/03/24 00:27 Temperature 97.4 F L Temperature Source Temporal Pulse Rate Respiratory Rate 16 Blood Pressure BP Systolic BP Diastolic Pulse Ox 04/03/24 00:28 04/03/24 00:28 04/03/24 00:28 Temperature Temperature Source Pulse Rate 78 Respiratory Rate Blood Pressure 110/58 L BP Systolic 110 BP Diastolic 58 Pulse Ox 98 04/03/24 00:33 04/03/24 00:33 04/03/24 00:38 Temperature Temperature Source Pulse Rate 91 81 Respiratory Rate Blood Pressure BP Systolic BP Diastolic Pulse Ox 97 04/03/24 00:38 04/03/24 00:43 04/03/24 00:43 Temperature Temperature Source Pulse Rate 75 Respiratory Rate Blood Pressure BP Systolic BP Diastolic Pulse Ox 97 98 04/03/24 00:48 04/03/24 00:48 04/03/24 00:53 Temperature Temperature Source Pulse Rate 81 85 Respiratory Rate Blood Pressure BP Systolic BP Diastolic Pulse Ox 97 04/03/24 00:53 04/03/24 00:58 04/03/24 00:58 Temperature Temperature Source Pulse Rate 73 Respiratory Rate Blood Pressure BP Systolic BP Diastolic Pulse Ox 96 97 04/03/24 01:00 04/03/24 01:00 04/03/24 01:03 Temperature Temperature Source Pulse Rate 88 80 Respiratory Rate Blood Pressure 107/58 L BP Systolic 107 BP Diastolic 58 Pulse Ox 04/03/24 01:03 04/03/24 01:08 04/03/24 01:08 Temperature Temperature Source Pulse Rate 81 Respiratory Rate Blood Pressure BP Systolic BP Diastolic Pulse Ox 98 99 04/03/24 01:10 04/03/24 01:10 Temperature Temperature Source Pulse Rate 93 Respiratory Rate Blood Pressure BP Systolic BP Diastolic Pulse Ox 80 Weight Weight: 187 lb 6 oz Body Mass Index (BMI) 34.2 Physical Exam Const alert, oriented x3 and no apparent distress General Appearance: cooperative Orientation / Consciousness: awake HEENT normocephalic Neck full ROM Lymph Lymphatic: no lymphadenopathy noted Chest inspection of chest normal Resp normal respiratory effort and normal air movement Effort and Inspection: able to speak in complete sentences and symmetric chest movement GI soft to palpation and non-tender Inspection: gravid Palpation: soft; Negative for tender external exam normal Back/Spine normal to inspection Extremity normal to inspection and full ROM Skin no rashes or lesions noted Psych mental status grossly normal Appearance: grossly normal Speech: normal speech Labs Labs Labs: Blood Type AB POSITIVE Antibody Screen NEGATIVE Hct 39.2 % (37-47) Hgb 13.2 g/dL (12.0-15.0) Obstetrics Ultrasound Syphilis Total Ab Non-reactive VZV IgG Antibody > 4000 index (Immune >165) Rubella IgG Antibody Reactive (Nonreactive) Hep Bs Antigen Non-Reactive (Nonreactive) Hepatitis C Antibody Non-Reactive (Nonreactive) Chlamydia DNA (ALEXANDRO) Negative (Negative) N.gonorrhoeae DNA (ALEXANDRO) Negative (Negative) HIV 1&2 Antibody Non-Reactive (Nonreactive) Glucose 1 Hr 50 gm 113 mg/dL (70-140) Rhogam given: No Miscellaneous Test Assessment & Plan (1) Breast feeding status of mother: (2) Active labor: PLAN: Patient presents IAL, plan expectant management for , pitocin/AROM PRN if needed. Pain management: plans epidural. GBS negative. Management of any complications: none I have reviewed the [facility] and made any clinically relevant updates. Dr Morgan aware of admission and plan, agrees with above. (3) Anxiety: COMMENT: started celexa 12/15 (4) AMA (advanced maternal age) multigravida 35+: QUALIFIERS: Trimester: second trimester Qualified Code(s): O09.522 - Supervision of elderly multigravida, second trimester COMMENT: genetic counseling provided and NIPT done. growth US every 4 weeks, deliver by 39-40. (5) Supervision of high risk in first trimester: COMMENT: PRR , CASSIDY 04/09, girl name secret PC: Naheed, : Lalito (6) H/O infertility: COMMENT: Seen by [facility] for last - Did IUI & Clomid, Vanishing Twin @ 7weeks *Not for this (7) : QUALIFIERS: Weeks of gestation: 37 weeks Qualified Code(s): Z3A.37 - 37 weeks gestation of COMMENT: gbs neg, nl anatomy, AFP Negative, Discussed genetic/carrier testing- low risk NIPT. 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
--- NOTE | 2024-04-03 01:17 | PCM.PN.BLA ---
Progress Note comfortable with epidural current tracing: FHT: 130 Moderate variability reactive no decelerations category I tracing [place]: 2-3 Contractions Membranes: SROM at 0100, additional bag ruptured after for meconium. SVE:6/80/-1 A/P: Continue with position changes Titrate pitocin per protocol Epidural per anesthesia GBS neg Anticipate Dr Moreno aware of above assessment and agrees with plan of care Assessment & Plan Assessment/Plan (1) Active labor: (2) Breast feeding status of mother: (3) Anxiety: (4) AMA (advanced maternal age) multigravida 35+: QUALIFIERS: Trimester: second trimester Qualified Code(s): O09.522 - Supervision of elderly multigravida, second trimester (5) Supervision of high risk in first trimester: (6) H/O infertility: (7) : QUALIFIERS: Weeks of gestation: 37 weeks Qualified Code(s): Z3A.37 - 37 weeks gestation of Multi Select Codes Urinary/Genital Urinary/Genital CPT Codes: No Charge
[2024-04-03] MEDS: Citalopram 10 MG Tablet PO ×2 (02:14→22:26)
[2024-04-03] MEDS: Ondansetron 4 MG/2 ML Vial IV (02:38)
[2024-04-03] MEDS: Oxytocin 10 UNITS/ML Vial IM (03:20)
[2024-04-03] MEDS: Oxytocin 15 Units/NS 250ml 15 UNITS/250 ML IV.SOLN 83 UNITS IV (03:22)
[2024-04-03] MEDS: Lidocaine 1% (20 ml mdv) 20 ML Vial INFILT (03:25)
--- NOTE | 2024-04-03 03:37 | OB.VAGDELI_ITS ---
Assessment & Plan (1) Vaginal delivery: COMMENT: KW IAL Girl Hilda (2) Active labor: (3) Breast feeding status of mother: (4) Anxiety: COMMENT: started celexa 12/15 (5) AMA (advanced maternal age) multigravida 35+: QUALIFIERS: Trimester: second trimester Qualified Code(s): O09.522 - Supervision of elderly multigravida, second trimester COMMENT: genetic counseling provided and NIPT done. growth US every 4 weeks, deliver by 39-40. (6) Supervision of high risk in first trimester: COMMENT: PRR , CASSIDY 04/09, girl name secret PC: Naheed, : Lalito (7) H/O infertility: COMMENT: Seen by [facility] for last - Did IUI & Clomid, Vanishing Twin @ 7weeks *Not for this (8) : QUALIFIERS: Weeks of gestation: 37 weeks Qualified Code(s): Z3A.37 - 37 weeks gestation of COMMENT: gbs neg, nl anatomy, AFP Negative, Discussed genetic/carrier testing- low risk NIPT. Carrier testing done w/[facility] for previous - Mom carrier for color blindness and metabolic disorder Maternal Data Information CASSIDY Calculator Estimated Delivery Date Method Current WG Current Estimate 04/09/24 LMP (Certain) 39w 1d Other Estimates 04/05/24 Ultrasound #1 39w 5d Final CASSIDY: 04/09/24 Final CASSIDY Source: US >20 weeks Gestational age: 39.1 Vaginal Delivery Maternal Presentation Maternal Presentation: Active Labor Maternal Presentation: Presented to unit for active labor Vaginal Delivery Information Procedure Performed: Spontaneous Vaginal Delivery Surgeon/Practitioner: Jeanne Huynh Date of Procedure: 04/03/24 Pre-Procedure Diagnosis: see problem list Post-Procedure Diagnosis: same Type of anesthesia: Epidural Estimated Blood Loss: 200 Time of Delivery: 03:12 Findings Description of procedure: Progressed well to 10cm dilated and made steady progress with effective maternal pushing. Nursery team to room for delivery due to meconium fluid. Delivered the head in GABI presentation. The head was delivered atraumatically and no nuchal cord was identified. The anterior and posterior shoulders delivered without complication followed by the rest of the and the infant was placed on the maternal abdomen. Delayed cord clamping was employed for approximately 3 minutes. Cord was clamped and cut and gentle traction was applied to the cord and the placenta delivered spontaneously. Immediately following, it was noted to be intact with a 3 vessel cord. Uterine bleeding stable. The perineum and vagina were inspected and noted to have a first degree laceration which was repaired with 3-0 Vicryl in the usual fashion. EBL was 200. Patient and tolerated delivery well. Apgars 6/8. Dr Morgan notified of vaginal delivery and orders reviewed. Physician agrees with current plan of care. Presentation: Vertex Amniotic Membrane Rupture Type: Spontaneous Amniotic Fluid Description: Moderate meconium Placental Delivery Description: Spontaneous Placenta Disposition: [facility] Specimen collected: No Cord Vessel Description: 3 Vessels Cord Entanglement: None A Gender: Female (1 minute): 6 (5 minute): 8 Delayed Cord Clamping: Yes Job Counselor building drafting officer: No Post Vaginal Deli Episiotomy Description: None Laceration: 1st degree Complication Complications: No Multi Select Codes Urinary/Genital Urinary/Genital CPT Codes: 29524 Vaginal Delivery [facility]
--- NOTE | 2024-04-03 03:41 | DCINST_ITS ---
Discharge Instructions Diet Discharge Diet: No restrictions DC O2, CPAP, BIPAP needs Additional Home O2 Discharge instructions: No Dressing / Incision Discharge Activity: Return to Normal Activity May resume sexual activity in: 6-8 weeks Dressing / Incision Call your doctor if you observe: Fever of 101 or Higher, Coldness, Increased Pain, Numbness or Tingling, Change in Color, Inability to urinate, Inability to have a bowel movement, Using more than 1 pad per hour, Shortness of breath, Dizziness, Fainting spells, Swelling in the ankles, Chest pain, Increased palpitations (irregular heartbeat), Calf discomfort and Uncontrolled pain Follow Up Care Please Follow Up With: Jeanne Huynh CNM When: Please call the office to schedule your follow up appointment in 6 weeks. If you had high blood pressure please call to schedule an appointment in 2 weeks. Test Results: Test results from this visit will be discussed in further detail at your follow- up appointment, if applicable. Discharge Plan Admission Admit Date/Time: 04/02/24 22:01 Attending Provider: Jeanne Huynh Primary Care Provider: Jodi Bishop Discharge Orders/Prescriptions Prescriptions: No Action (DME) breast pump Device See Rx Instructions .ROUTE .MEDSUPPLY Qty: 1 0RF Rx Instructions: As directed [id number] 1 mg Tablet 1 tab PO DAILY citalopram [Celexa] 20 mg tablet 10 mg PO DAILY Patient Comments: prescribe 20mg but only takes 1/2 tab Referrals / Follow Up: Jodi Bishop PA [Primary Care Provider] -
[2024-04-03] MEDS: 0.9% Saline Lock 10 ML Syringe IV (06:51)
[2024-04-03] MEDS: Ibuprofen 600 MG Tablet PO ×2 (10:39→20:08)
[2024-04-04] MEDS: Ibuprofen 600 MG Tablet PO (03:54)
[2024-04-04 03:56] VITALS: BP 120/79; PULSE 66; RESP 16; TEMP 36.4
[2024-04-04 08:23] VITALS: BP 113/73; PULSE 76
[2024-04-04 08:42] VITALS: BP 113/78; PULSE 78; RESP 16; TEMP 36.9; O2SAT 99
== END 2024-04-04 12:15 | disposition home or self-care (01) | DRG 807 ==
LOC: WPOUT 22:02 → WP 22:04
PROVIDERS: Admitting Provider Advanced Practice Midwife; PCP Physician Assistant; Referring Provider Advanced Practice Midwife; Visit Provider Advanced Practice Midwife
DX: O70.0 First degree perineal laceration during delivery (principal); Z37.0 Single live birth; O99.344 Other mental disorders complicating childbirth; F41.9 Anxiety disorder, unspecified; Z79.891 Long term (current) use of opiate analgesic; Z87.891 Personal history of nicotine dependence; Z3A.37 37 weeks gestation of pregnancy; Z87.42 Personal history of other diseases of the female genital tract; O77.0 Labor and delivery complicated by meconium in amniotic fluid
CPT/HCPCS: 59025; 59050; 85025; 86780; 86850; 86900; 86901; 99221; J7120; A4216; G0378; J2405